=== PATIENT | female | born 1990 | race Caucasian/White ===

== ENCOUNTER 2017-04-27 20:08 | Emergency (ER) | payer MEDICARE, MEDICAID ==
[2017-04-27] MEDS ORDERED: predniSONE 20 MG TABLET PO STA (20:33)
[2017-04-27] MEDS ORDERED: ALBUTEROL NEB 2.5 MG/3 ML INH STA (20:34)
[2017-04-27] MEDS ORDERED: BENZONATATE 100 MG CAPSULE PO STA (20:35)
[2017-04-27 20:37] LABS: RAPID STREP SCREEN REAGENT QC YELLOW (YELLOW)
--- NOTE | 2017-04-27 20:38 | ED Physician Documentation ---
PD HPI URI - Stated complaint Stated Complaint: COUGH - Chief complaint Chief Complaint: Resp - History obtained from History obtained from: Patient, Family - History of Present Illness Timing - onset: How many days ago (3) Timing duration: Days (3) Timing details: Gradual onset Pain level max: 0 Pain level now: 0 Associated symptoms: Fever (subjective), Nasal congestion, Rhinorrhea, Sore throat, Productive cough (green), Dyspnea (wheezing, not using her inhaler). No : Hemoptysis, Chest pain Contributing factors: Sick contact Improves by: Rest, MDI/nebulizer (has not used inhaler) Worsened by: Activity Similar symptoms before: Diagnosis ("bronchitis") Recently seen: Not recently seen Review of Systems Ears: denies: Ear pain GI: denies: Abdominal Pain, Vomiting, Diarrhea Skin: denies: Rash Musculoskeletal: denies: Neck pain, Back pain Neurologic: denies: Focal weakness, Numbness, Headache PD PAST MEDICAL HISTORY - Past Medical History Past Medical History: Yes Respiratory: Asthma - Past Surgical History Past Surgical History: No - Present Medications Home Medications: Ambulatory Orders Medication Instructions Recorded Confirmed Albuterol 2.5 mg INH Q4H PRN 02/25/13 02/25/13 Albuterol [Ventolin Hfa] 2 puffs INH Q4H PRN #1 inhaler 02/25/13 Chrom Tayla/Brindal Wall [Fat 1 each PO PRN 07/29/13 07/29/13 Jl Plus Tablet] Permethrin 5% Cream [(None)] 60 gm TP ONCE #1 cream..g. 07/29/13 Albuterol Sulf [Ventolin Hfa 2 puffs INH Q4HR PRN #1 inhaler 04/27/17 Inhaler] Benzonatate [Tessalon Perle] 100 - 200 mg PO TID PRN #30 capsule 04/27/17 Cetirizine HCl/Pseudoephedrine 1 each PO BID PRN #30 tab.er.12h 04/27/17 [Zyrtec-D Tablet] - Allergies Allergies/Adverse Reactions: Allergies Allergy/AdvReac Type Severity Reaction Status Date / Time sulfamethoxazole Allergy Mild Rash Verified 04/27/17 20:18 [From Bactrim] tramadol Allergy Mild Rash Verified 04/27/17 20:18 trimethoprim [From Bactrim] Allergy Mild Rash Verified 04/27/17 20:18 - Social History Does the pt smoke?: No Smoking Status: Never smoker Does the pt drink ETOH?: No Does the pt have substance abuse?: No - Immunizations Immunizations are current?: Yes - POLST Patient has POLST: No PD ED PE NORMAL - Vitals Vital signs reviewed: Yes - General General: Alert and oriented X 3, No acute distress, Well developed/nourished - HEENT HEENT: PERRL, Ears normal, Moist mucous membranes, Pharynx benign, Other (clear rhinorrhea) - Neck Neck: Supple, no meningeal sign - Cardiac Cardiac: RRR, Strong equal pulses - Respiratory Respiratory: No respiratory distress, Clear bilaterally - Abdomen Abdomen: Soft, Non tender, Non distended - Back Back: No CVA TTP - Derm Derm: Warm and dry, No rash - Neuro Neuro: Alert and oriented X 3 - Psych Psych: Normal mood, Normal affect Results - Vitals Vitals: Vital Signs - 24 hr 04/27/17 04/27/17 04/27/17 20:13 20:56 21:24 Temperature 36.4 C L Heart Rate 100 92 102 H Respiratory 17 18 18 Rate Blood Pressure 150/97 H 146/86 H O2 Saturation 98 97 04/27/17 21:37 Temperature 36.7 C Heart Rate 80 Respiratory 18 Rate Blood Pressure 99/83 H O2 Saturation 100 Oxygen O2 Source Room air - Labs Labs: Laboratory Tests 04/27/17 20:15 Group A Strep Rapid Negative - Rads (name of study) cxr Radiology: Prelim report reviewed, EMP read contemporaneously, See rad report ( No acute abnormality) PD MEDICAL DECISION MAKING - ED course Complexity details: reviewed results, re-evaluated patient, considered differential, d/w patient, d/w family ED course: Patient is a 27-year-old female who presents to the emergency department with a viral URI. Will refill her inhaler for her. Place her on decongestants and Tessalon. No acute findings on x-ray. No pneumonia. Clinically very well- appearing, nontoxic. No hypoxia. No respiratory distress. Patient counseled regarding signs and symptoms for which I believe and urgent re-evaluation would be necessary. Patient with good understanding of and agreement to plan and is comfortable going home at this time This document was made in part using voice recognition software. While efforts are made to proofread this document, sound alike and grammatical errors may occur. Departure - Departure Disposition: 01 Home, Self Care Clinical Impression: Viral URI Condition: Good Instructions: ED URI Viral Follow-Up: Sierra Bernard ARNP [Primary Care Provider] - Within 1 week Prescriptions: Albuterol Sulf [Ventolin Hfa Inhaler] 2 puffs INH Q4HR PRN #1 inhaler PRN Reason: Wheezing Benzonatate [Tessalon Perle] 100 - 200 mg PO TID PRN #30 capsule PRN Reason: Cough Cetirizine HCl/Pseudoephedrine [Zyrtec-D Tablet] 1 each PO BID PRN #30 tab.er.12h PRN Reason: Nasal Congestion Comments: There is no pneumonia on your chest x-ray today. Take the medications as prescribed. In general this will last approximately 7-14 days. Return if you worsen. Discharge Date/Time: 04/27/17 21:41
[2017-04-27] MEDS ORDERED: predniSONE 20 MG TABLET ONE (20:42)
[2017-04-27] MEDS ORDERED: BENZONATATE 100 MG CAPSULE PO ONE (20:42)
[2017-04-27] MEDS ORDERED: ALBUTEROL NEB 2.5 MG/3 ML INH ONE (20:51)
--- NOTE | 2017-04-27 21:14 | XRAY Preliminary Report ---
Exam: XR Chest 2 View PA/LAT IMPRESSION: No acute pulmonary disease or interval change. [facility] SITE ID: [id number]
--- NOTE | 2017-04-27 21:16 | XRAY Report ---
EXAM: CHEST RADIOGRAPHY EXAM DATE: 04/27/2017 08:56 PM. CLINICAL HISTORY: Cough. Fever. Chest pain. COMPARISON: 02/25/2013. TECHNIQUE: 2 views. FINDINGS: Lungs/Pleura: Stable minor left base scarring, otherwise no focal opacities evident. No pleural effus ion. No pneumothorax. Normal volumes. Mediastinum: Heart and mediastinal contours are unremarkable. Other: No bony abnormality identified. IMPRESSION: No acute pulmonary disease or interval change. [facility] Referring Provider Line: [phone] SITE ID: [id number]
[2017-04-27 21:39] VITALS: BP 99/83
== END 2017-04-27 21:41 | disposition home or self-care (01) ==
LOC: ED 20:08
DX: J06.9 Acute upper respiratory infection, unspecified (principal); B34.9 Viral infection, unspecified
CPT/HCPCS: 71020; 87070; 87430; 94640; 99283; A9270; J7512; J7613

== ENCOUNTER 2017-11-12 02:12 | Emergency (ER) | payer MEDICARE, MEDICAID ==
[2017-11-12 02:20] VITALS: BP 132/92
[2017-11-12] MEDS ORDERED: IBUPROFEN 600 MG TABLET PO STA (02:34)
[2017-11-12] MEDS ORDERED: ONDANSETRON ODT 4 MG TABLET TL STA (02:35)
[2017-11-12] MEDS ORDERED: AMOXICILLIN 250 MG CAPSULE PO STA (02:35)
--- NOTE | 2017-11-12 02:44 | ED Physician Documentation ---
PD [facility] HEENT - Stated complaint Stated Complaint: DENTAL PAIN - Chief complaint Chief Complaint: Heent - History obtained from History obtained from: Patient - History of Present Illness Timing - onset: Today Timing - details: Gradual onset, Still present Location: Left ear, Throat Associated symptoms: No: Fever Similar symptoms before: Has not had sx before Recently seen: Not recently seen - Additional information Additional information: Patient is a 27 year old female presenting to the emergency department for ear pain, mouth pain, nausea and vomiting. Patient states that her symptoms started today. patient denies any fevers. patient reports that she has had a toothache and has been using orajel. Patient states that she had an episode where she vomited green stuff, then an episode when she vomited white stuff. Review of Systems Constitutional: denies: Fever, Chills Eyes: denies: Decreased vision, Photophobia Ears: reports: Ear pain Nose: denies: Rhinorrhea / runny nose, Congestion Throat: reports: Dental pain / toothache, Sore throat Cardiac: reports: Reviewed and negative Respiratory: reports: Reviewed and negative GI: reports: Nausea, Vomiting. denies: Abdominal Pain, Constipation, Diarrhea : denies: Dysuria, Frequency Skin: denies: Rash, Lesions Musculoskeletal: denies: Neck pain, Back pain, Extremity pain Neurologic: denies: Generalized weakness, Syncope Immunocompromised: denies: Immunocompromised PD PAST MEDICAL HISTORY - Past Medical History Respiratory: Asthma - Past Surgical History Past Surgical History: No - Present Medications Home Medications: Ambulatory Orders Medication Instructions Recorded Confirmed Albuterol 2.5 mg INH Q4H PRN 02/25/13 02/25/13 Albuterol [Ventolin Hfa] 2 puffs INH Q4H PRN #1 inhaler 02/25/13 Chrom Tayla/Brindal Wall [Fat 1 each PO PRN 07/29/13 07/29/13 Jl Plus Tablet] Permethrin 5% Cream 60 gm TP ONCE #1 cream..g. 07/29/13 Albuterol Sulf [Ventolin Hfa 2 puffs INH Q4HR PRN #1 inhaler 04/27/17 Inhaler] Benzonatate [Tessalon Perle] 100 - 200 mg PO TID PRN #30 capsule 04/27/17 Cetirizine HCl/Pseudoephedrine 1 each PO BID PRN #30 tab.er.12h 04/27/17 [Zyrtec-D Tablet] Amoxicillin 1,000 mg PO BID 10 Days capsule 11/12/17 Ondansetron Odt [Zofran] 4 mg TL Q6H PRN #14 tablet 11/12/17 - Allergies Allergies/Adverse Reactions: Allergies Allergy/AdvReac Type Severity Reaction Status Date / Time sulfamethoxazole Allergy Mild Rash Verified 11/12/17 02:20 [From Bactrim] tramadol Allergy Mild Rash Verified 11/12/17 02:20 trimethoprim [From Bactrim] Allergy Mild Rash Verified 11/12/17 02:20 - Social History Does the pt smoke?: No Smoking Status: Never smoker Does the pt drink ETOH?: No Does the pt have substance abuse?: No - Immunizations Immunizations are current?: Yes - POLST Patient has POLST: No PD ED PE NORMAL - Vitals Vital signs reviewed: Yes - HEENT HEENT: Atraumatic - Neck Neck: Supple, no meningeal sign - Cardiac Cardiac: RRR - Respiratory Respiratory: No respiratory distress - Abdomen Abdomen: Soft, Non tender, Non distended - Derm Derm: Normal color, Warm and dry - Extremities Extremities: No deformity - Neuro Neuro: Alert and oriented X 3, No motor deficit, Normal speech Eye Opening: Spontaneous PD ED PE EXPANDED - General General: Alert, Anxious - HEENT HEENT: R TM dull, R TM retracted, L TM dull, L TM retracted, Pharynx normal, Dental TTP. No: Pharyngeal erythema, Swollen tonsils, Oral lesions / sores Results - Vitals Vitals: Vital Signs - 24 hr 11/12/17 02:19 Temperature 36.1 C L Heart Rate 101 H Respiratory 16 Rate Blood Pressure 132/92 H O2 Saturation 100 Oxygen O2 Source Room air PD MEDICAL DECISION MAKING - ED course Complexity details: reviewed old records, reviewed results, re-evaluated patient , considered differential, d/w patient ED course: Patient was seen and examined at bedside. patient was anxious appearing but in no distress. Patient was treated with zofran, motrin and amoxicllin. patient required no further work up and was stable for discharge with outpatient follow up. Departure - Departure Disposition: 01 Home, Self Care Clinical Impression: Otitis media Condition: Good Instructions: ED Otitis Media Acute Adult Follow-Up: Sierra Bernard ARNP [Primary Care Provider] - Within 1 week Prescriptions: Amoxicillin 1,000 mg PO BID 10 Days capsule Ondansetron Odt [Zofran] 4 mg TL Q6H PRN #14 tablet PRN Reason: Nausea / Vomiting Comments: Your symptoms today are being caused by an ear infection. You have been started on antibiotics for it, which your will need to take twice a day. You can take zofran as needed for nausea and alternate between ibuprofen and tylenol every three hours as needed for pain. You should follow up with your doctor tomorrow if your symptoms persist. You may return to the emergency department at any time for new, worsening or uncontrollable symptoms.
== END 2017-11-12 02:58 | disposition home or self-care (01) ==
LOC: ED 02:12
DX: H66.93 Otitis media, unspecified, bilateral (principal)
CPT/HCPCS: 99283; A9270; Q0162

== ENCOUNTER 2018-08-09 18:40 | Emergency (ER) | payer MEDICARE, MEDICAID ==
[2018-08-09] MEDS ORDERED: LORazepam 0.5 MG TABLET PO STA (18:56)
--- NOTE | 2018-08-09 18:57 | ED Physician Documentation ---
PD HPI ABD PAIN - Stated complaint Stated Complaint: ETOH WITHDRAWL - Chief complaint Chief Complaint: Abd Pain - History obtained from History obtained from: Patient, Family (mom) - History of Present Illness Timing - onset: Last night (She felt like she had a UTI with urinary frequency and urgency. She had some lower abdominal pressure. Then she went out partying last night and had a bunch of Jell-O shots and smokes marijuana. This morning her mom found her passed out and she aroused her and found her to have what sounds like a panic attack with anxiety and feeling like she was going to . That has all past but she still little anxious and feels like she has a UTI. She is not a frequent drinker.) Review of Systems Ten Systems: 10 systems reviewed and negative Constitutional: reports: Chills, Fatigue. denies: Fever Cardiac: denies: Chest pain / pressure, Palpitations Respiratory: denies: Dyspnea, Cough GI: denies: Nausea, Vomiting, Diarrhea PD PAST MEDICAL HISTORY - Past Medical History Respiratory: Asthma - Past Surgical History Past Surgical History: No - Present Medications Home Medications: Ambulatory Orders Medication Instructions Recorded Confirmed Albuterol 2.5 mg INH Q4H PRN 02/25/13 02/25/13 Albuterol [Ventolin Hfa] 2 puffs INH Q4H PRN #1 inhaler 02/25/13 Chrom Tayla/Brindal Wall [Fat 1 each PO PRN 07/29/13 07/29/13 Jl Plus Tablet] Permethrin 5% Cream 60 gm TP ONCE #1 cream..g. 07/29/13 Albuterol Sulf [Ventolin Hfa 2 puffs INH Q4HR PRN #1 inhaler 04/27/17 Inhaler] Benzonatate [Tessalon Perle] 100 - 200 mg PO TID PRN #30 capsule 04/27/17 Cetirizine HCl/Pseudoephedrine 1 each PO BID PRN #30 tab.er.12h 04/27/17 [Zyrtec-D Tablet] Amoxicillin 1,000 mg PO BID 10 Days capsule 11/12/17 Ondansetron Odt [Zofran] 4 mg TL Q6H PRN #14 tablet 11/12/17 Hydrocortisone 1% Oint 1 appful TP TID #2 oint...g. 08/09/18 [Hydrocortisone] Nitrofurantoin Monohyd/M-Cryst 100 mg PO BID #10 capsule 08/09/18 [Macrobid 100 mg Capsule] - Allergies Allergies/Adverse Reactions: Allergies Allergy/AdvReac Type Severity Reaction Status Date / Time sulfamethoxazole Allergy Mild Rash Verified 08/09/18 18:55 [From Bactrim] tramadol Allergy Mild Rash Verified 08/09/18 18:55 trimethoprim [From Bactrim] Allergy Mild Rash Verified 08/09/18 18:55 - Social History Does the pt smoke?: No Smoking Status: Never smoker Does the pt drink ETOH?: No Does the pt have substance abuse?: No - Immunizations Immunizations are current?: Yes - POLST Patient has POLST: No PD ED PE NORMAL - Vitals Vital signs reviewed: Yes - General General: Alert and oriented X 3, No acute distress - HEENT HEENT: PERRL, EOMI - Neck Neck: Supple, no meningeal sign, No bony TTP - Cardiac Cardiac: RRR, No murmur - Respiratory Respiratory: No respiratory distress, Clear bilaterally - Abdomen Abdomen: Non tender - Neuro Neuro: Alert and oriented X 3, Normal speech - Psych Psych: Normal mood, Normal affect Results - Vitals Vitals: Vital Signs - 24 hr 08/09/18 18:52 Temperature 36.0 C L Heart Rate 102 H Respiratory 16 Rate Blood Pressure 163/95 H O2 Saturation 99 Oxygen O2 Source Room air - Labs Labs: Laboratory Tests 08/09/18 19:30 Urine Color YELLOW Urine Clarity CLEAR Urine pH 6.0 Ur Specific [place] 1.010 Urine Protein NEGATIVE Urine Glucose (UA) NEGATIVE Urine Ketones NEGATIVE Urine Occult Blood NEGATIVE Urine Nitrite NEGATIVE Urine Bilirubin NEGATIVE Urine Urobilinogen 0.2 (NORMAL) Ur Leukocyte Esterase TRACE H Ur Microscopic Review INDICATED Urine Culture Comments Not Reportable Urine HCG, Qual NEGATIVE PD MEDICAL DECISION MAKING - ED course ED course: 28-year-old woman with what sounds like a panic attack this morning while being hung over and complex with a UTI. She was given half milligram of Ativan here with relief of her anxiety and Macrobid for the UTI. She also has a very mild nonspecific rash mostly in the back looks more like bug bites than anything else for which she is treated with a cortisone ointment. Departure - Departure Disposition: 01 Home, Self Care Clinical Impression: Rash and nonspecific skin eruption, Anxiety with limited-symptom attacks Urinary tract infection Qualifiers: Urinary tract infection type: acute cystitis Hematuria presence: without hematuria Qualified Code(s): N30.00 - Acute cystitis without hematuria Hangover Qualifiers: Complication of substance-induced condition: uncomplicated Qualified Code(s): F10.120 - Alcohol abuse with intoxication, uncomplicated Condition: Good Record reviewed to determine appropriate education?: Yes Instructions: ED Stress React, ED UTI Cystitis Female Prescriptions: Hydrocortisone 1% Oint [Hydrocortisone] 1 appful TP TID #2 oint...g. Nitrofurantoin Monohyd/M-Cryst [Macrobid 100 mg Capsule] 100 mg PO BID #10 capsule Comments: Call your doctor to arrange a follow-up appointment, make the next available appointment. In the interim, return anytime if worse or if new symptoms d evelop. Your blood pressure was elevated today on check into the emergency department. This does not mean that you have hypertension, it is a common phenomenon to come to the emergency department and have elevated blood pressure. I recommend that you see your primary care physician within the week to have it rechecked when you are feeling better.
[2018-08-09 19:40] LABS: BILIRUBIN,URINE NEGATIVE (NEGATIVE); GLUCOSE, URINE (UA) NEGATIVE (NEGATIVE); KETONES,URINE (UA) NEGATIVE (NEGATIVE); LEUKOCYTE ESTERASE, URINE TRACE (NEGATIVE); NITRITE,URINE NEGATIVE (NEGATIVE); OCCULT BLOOD,URINE NEGATIVE (NEGATIVE); PROTEIN,URINE NEGATIVE (NEGATIVE); UROBILINOGEN,URINE 0.2 (NORMAL) E.U./dL (NORMAL)
[2018-08-09 19:41] LABS: CLARITY,URINE CLEAR (CLEAR); HCG UR QUAL NEGATIVE
[2018-08-09] MEDS ORDERED: NITROFURANTOIN MACRO 100 MG CAPSULE PO STA (19:50)
[2018-08-09 19:58] LABS: AMORPHOUS SEDIMENT,UR Rare /LPF; BACTERIA,URINE Many /HPF (None Seen); RBC,URINE None Seen /HPF (0-5); SQUAMOUS EPITHELIAL CELL,UR FEW Squamous (<= Few)
[2018-08-09 20:03] VITALS: BP 120/79
== END 2018-08-09 20:04 | disposition home or self-care (01) ==
LOC: ED 18:40
DX: F41.9 Anxiety disorder, unspecified (principal); R21 Rash and other nonspecific skin eruption; N30.00 Acute cystitis without hematuria
CPT/HCPCS: 81001; 81025; 87086; 99283; A9270; 81003

== ENCOUNTER 2018-08-21 09:00 | Outpatient (CLI) | payer MEDICARE, MEDICAID ==
[2018-08-22 10:12] LABS: BILIRUBIN,URINE NEGATIVE (NEGATIVE); GLUCOSE, URINE (UA) NEGATIVE (NEGATIVE); KETONES,URINE (UA) 15 mg/dL (NEGATIVE); LEUKOCYTE ESTERASE, URINE NEGATIVE (NEGATIVE); NITRITE,URINE NEGATIVE (NEGATIVE); OCCULT BLOOD,URINE NEGATIVE (NEGATIVE); PROTEIN,URINE NEGATIVE (NEGATIVE); UROBILINOGEN,URINE 0.2 (NORMAL) E.U./dL (NORMAL)
[2018-08-22 10:17] LABS: CLARITY,URINE CLOUDY (CLEAR)
[2018-08-22 10:30] LABS: BACTERIA,URINE Moderate /HPF (None Seen); RBC,URINE 0-5 /HPF (0-5); SQUAMOUS EPITHELIAL CELL,UR RARE Squamous (<= Few)
== END 2018-08-21 23:59 ==
LOC: LAB.R 09:00
PROVIDERS: ATTEND Nurse Practitioner Family
DX: N39.0 Urinary tract infection, site not specified (principal)
CPT/HCPCS: 81001; 81003; 87086

== ENCOUNTER 2018-09-22 16:01 | Emergency (ER) | payer MEDICARE, MEDICAID ==
[2018-09-22 16:37] LABS: BILIRUBIN,URINE NEGATIVE (NEGATIVE); GLUCOSE, URINE (UA) NEGATIVE (NEGATIVE); KETONES,URINE (UA) NEGATIVE (NEGATIVE); LEUKOCYTE ESTERASE, URINE NEGATIVE (NEGATIVE); NITRITE,URINE NEGATIVE (NEGATIVE); OCCULT BLOOD,URINE NEGATIVE (NEGATIVE); PROTEIN,URINE NEGATIVE (NEGATIVE); UROBILINOGEN,URINE 0.2 (NORMAL) E.U./dL (NORMAL)
[2018-09-22 16:39] LABS: CLARITY,URINE CLEAR (CLEAR)
[2018-09-22 16:40] LABS: HCG UR QUAL NEGATIVE
--- NOTE | 2018-09-22 17:11 | ED Physician Documentation ---
PD HPI URI - Stated complaint Stated Complaint: CHEST PX/FEMALE - Chief complaint Chief Complaint: Fever - History obtained from History obtained from: Patient - History of Present Illness Timing - onset: How many days ago (few) Timing duration: Days (few days of sinus symptoms, but has had congestion and cough and fever for over a week. Dx with Flu-A last week, and was improving some, then sinus pressure and drainage the past few days.) Timing details: Gradual onset, Still present Associated symptoms: Fever, Nasal congestion, Sinus pain, Dry cough. No: Sore throat Contributing factors: No: Sick contact Recently seen: Clinic (Dx with Flu last week) Review of Systems Constitutional: reports: Fever Nose: reports: Rhinorrhea / runny nose, Congestion, Sinus pressure / pain Throat: denies: Sore throat Respiratory: reports: Cough GI: denies: Abdominal Pain, Nausea, Vomiting, Diarrhea Skin: denies: Rash Neurologic: reports: Headache (frontal). denies: Altered mental status PD PAST MEDICAL HISTORY - Past Medical History Past Medical History: Yes Respiratory: Asthma - Past Surgical History Past Surgical History: No - Present Medications Home Medications: Ambulatory Orders Medication Instructions Recorded Confirmed Albuterol 2.5 mg INH Q4H PRN 02/25/13 02/25/13 Albuterol [Ventolin Hfa] 2 puffs INH Q4H PRN #1 inhaler 02/25/13 Chrom Tayla/Brindal Wall [Fat 1 each PO PRN 07/29/13 07/29/13 Jl Plus Tablet] Permethrin 5% Cream 60 gm TP ONCE #1 cream..g. 07/29/13 Albuterol Sulf [Ventolin Hfa 2 puffs INH Q4HR PRN #1 inhaler 04/27/17 Inhaler] Benzonatate [Tessalon Perle] 100 - 200 mg PO TID PRN #30 capsule 04/27/17 Cetirizine HCl/Pseudoephedrine 1 each PO BID PRN #30 tab.er.12h 04/27/17 [Zyrtec-D Tablet] Amoxicillin 1,000 mg PO BID 10 Days capsule 11/12/17 Ondansetron Odt [Zofran] 4 mg TL Q6H PRN #14 tablet 11/12/17 Hydrocortisone 1% Oint 1 appful TP TID #2 oint...g. 08/09/18 [Hydrocortisone] Nitrofurantoin Monohyd/M-Cryst 100 mg PO BID #10 capsule 08/09/18 [Macrobid 100 mg Capsule] Amoxicillin 500 mg PO TID #21 capsule 09/22/18 Dexamethasone [Decadron] 4 mg PO DAILY #5 tablet 09/22/18 Ondansetron Odt [Zofran] 4 mg TL Q6H PRN #10 tablet 09/22/18 - Allergies Allergies/Adverse Reactions: Allergies Allergy/AdvReac Type Severity Reaction Status Date / Time sulfamethoxazole Allergy Mild Rash Verified 09/22/18 16:08 [From Bactrim] tramadol Allergy Mild Rash Verified 09/22/18 16:08 trimethoprim [From Bactrim] Allergy Mild Rash Verified 09/22/18 16:08 - Social History Does the pt smoke?: No Smoking Status: Never smoker Does the pt drink ETOH?: No Does the pt have substance abuse?: No - Immunizations Immunizations are current?: Yes - POLST Patient has POLST: No PD ED PE NORMAL - Vitals Vital signs reviewed: Yes - General General: Alert and oriented X 3, No acute distress, Well developed/nourished - HEENT HEENT: Ears normal, Pharynx benign, Other (sinus tenderness to percussion frontal and maxillary) - Neck Neck: Supple, no meningeal sign - Cardiac Cardiac: RRR (mildly tachycardic), No murmur - Respiratory Respiratory: Clear bilaterally - Abdomen Abdomen: Soft, Non tender - Back Back: No CVA TTP - Derm Derm: Normal color, Warm and dry Results - Vitals Vitals: Oxygen O2 Source Room air - Labs Labs: Laboratory Tests 09/22/18 09/22/18 09/22/18 16:20 18:05 18:05 WBC 6.6 RBC 4.90 Hgb 14.3 Hct 42.6 MCV 87.0 MCH 29.2 MCHC 33.6 RDW 12.8 Plt Count 301 MPV 7.7 L Neut # (Auto) 4.0 Lymph # (Auto) 1.6 [place] # (Auto) 0.7 Eos # (Auto) 0.3 Baso # (Auto) 0.1 Absolute Nucleated RBC 0.00 Nucleated RBC % 0.0 Sodium 138 Potassium 3.7 Chloride 103 Carbon Dioxide 27 Anion Gap 8.0 BUN 6 Creatinine 0.5 Estimated GFR (MDRD) 147 Glucose 101 H Calcium 9.3 Total Bilirubin 0.5 AST 18 ALT 20 Alkaline Phosphatase 54 Total Protein 8.0 Albumin 4.3 Globulin 3.7 Albumin/Globulin Ratio 1.2 Lipase 27 Urine Color YELLOW Urine Clarity CLEAR Urine pH 6.0 Ur Specific [place] 1.010 Urine Protein NEGATIVE Urine Glucose (UA) NEGATIVE Urine Ketones NEGATIVE Urine Occult Blood NEGATIVE Urine Nitrite NEGATIVE Urine Bilirubin NEGATIVE Urine Urobilinogen 0.2 (NORMAL) Ur Leukocyte Esterase NEGATIVE Ur Microscopic Review NOT INDICATED Urine Culture Comments NOT INDICATED Urine HCG, Qual NEGATIVE PD MEDICAL DECISION MAKING - ED course Complexity details: considered differential (symptoms are mainly sinus but with purulent discharge, teeth pain and sinus pressure. Unsure if just viral or might have bacterial. ), d/w patient Departure - Departure Disposition: 01 Home, Self Care Clinical Impression: Upper respiratory infection Qualifiers: URI type: unspecified URI Qualified Code(s): J06.9 - Acute upper respiratory infection, unspecified Acute sinus infection Qualifiers: Sinusitis location: unspecified location Recurrence: non-recurrent Qualified Code(s): J01.90 - Acute sinusitis, unspecified Condition: Stable Record reviewed to determine appropriate education?: Yes Instructions: ED Sinusitis Abx Tx Prescriptions: Amoxicillin 500 mg PO TID #21 capsule Dexamethasone [Decadron] 4 mg PO DAILY #5 tablet Ondansetron Odt [Zofran] 4 mg TL Q6H PRN #10 tablet PRN Reason: Nausea / Vomiting Comments: Stay well hydrated. Your blood tests are good and chest xray is clear. This may be viral illness, but some sounds possibly bacterial, so will treat with antibiotic, as well as medication for inflammation, and nausea. Recheck if not improving over the next few days. Discharge Date/Time: 09/22/18 19:11
[2018-09-22] MEDS ORDERED: ONDANSETRON ODT 4 MG TABLET TL STA (17:37)
[2018-09-22] MEDS ORDERED: DEXAMETHASONE 10 MG/ML VIAL PO STA (17:37)
[2018-09-22] MEDS ORDERED: diphenhydrAMINE 25 MG CAPSULE PO STA (17:37)
--- NOTE | 2018-09-22 18:18 | XRAY Report ---
Reason: congest and flu for 2 weeks Procedure Date: 09/22/2018 Accession Number: [id number] / [id number] Procedure: XR - Chest 2 View X-Ray CPT Code: 24537 FULL RESULT: EXAM: CHEST RADIOGRAPHY EXAM DATE: 09/22/2018 05:55 PM. CLINICAL HISTORY: Congest and flu for 2 weeks. Positive flu for 1 week. Increased productive cough. Shortness of air for 2 days. COMPARISON: CHEST 2 VIEW PA/LAT 04/27/2017 8:37 PM. TECHNIQUE: 2 views. FINDINGS: Lungs/Pleura: No focal opacities evident. No pleural effusion. No pneumothorax. Normal volumes. Mediastinum: Heart and mediastinal contours are unremarkable. IMPRESSION: No acute cardiopulmonary disease seen. [facility]
[2018-09-22 18:21] LABS: BASOPHILS # (AUTO) 0.1 10^3/uL (0.0-0.1); BASOPHILS % (AUTO) 0.9 %; EOSINOPHILS # (AUTO) 0.3 10^3/uL (0.0-0.7); EOSINOPHILS % (AUTO) 4.2 %; HGB - HEMOGLOBIN 14.3 g/dL (12.0-16.0); LYMPHOCYTES # (AUTO) 1.6 10^3/uL (1.5-3.5); LYMPHOCYTES % (AUTO) 23.7 %; MEAN CORPUSCULAR HEMOGLOBIN 29.2 pg (27.0-31.0); MEAN CORPUSCULAR HGB CONC 33.6 g/dL (32.0-36.0); MEAN PLATELET VOLUME 7.7 fL (7.9-10.8); MONOCYTES # (AUTO) 0.7 10^3/uL (0.0-1.0); NEUTROPHILS % (AUTO) 60.2 %; PLT - PLATELET COUNT 301 10^3/uL (130-450); RED CELL DISTRIBUTION WIDTH 12.8 % (12.0-15.0); WHITE BLOOD COUNT 6.6 x10^3/uL (4.8-10.8)
[2018-09-22 18:35] LABS: ALBUMIN 4.3 g/dL (3.2-5.5); ALBUMIN/GLOBULIN RATIO 1.2 (1.0-2.2); BILIRUBIN,TOTAL 0.5 mg/dL (0.2-1.0); CALCIUM 9.3 mg/dL (8.5-10.3); CREATININE 0.5 mg/dL (0.4-1.0)
[2018-09-22] MEDS ORDERED: AMOXICILLIN 250 MG CAPSULE PO STA (19:00)
[2018-09-22 19:12] VITALS: BP 126/72
== END 2018-09-22 19:11 | disposition home or self-care (01) ==
LOC: ED 16:01
DX: J01.90 Acute sinusitis, unspecified (principal); J06.9 Acute upper respiratory infection, unspecified; J45.909 Unspecified asthma, uncomplicated
CPT/HCPCS: 36415; 71046; 80053; 81003; 81025; 83690; 85025; 99283; A9270; Q0162; 81001; 87086

== ENCOUNTER 2018-09-27 00:26 | Emergency (ER) | payer MEDICARE, MEDICAID ==
--- NOTE | 2018-09-27 00:44 | ED Physician Documentation ---
PD HPI SKIN - Stated complaint Stated Complaint: RASH - Chief complaint Chief Complaint: Wound - History obtained from History obtained from: Patient - History of Present Illness Timing - onset: How many days ago (2-3) Timing - details: Abrupt onset, Intermittant Location: Face Quality / character: Itchy Associated symptoms: No: Fever Contributing factors: Exposed to medication Similar symptoms before: Other (does not recall similar symptoms, although I see a previous [facility] ED visit for rash that has similar description) Recently seen: Emergency Dept - Additional information Additional information: T+R from this ED 09/22 for sinusitis, rx decadron, amoxicillin, and zofran. presents due to episodic pruritic rash, predominantly on face. also has had difficulty sleeping and was told by PMDs office to stop the decadron. she has appointment with pmd tomorrow. Review of Systems Constitutional: reports: Reviewed and negative Ears: reports: Ear pain Nose: reports: Congestion, Sinus pressure / pain Throat: denies: Sore throat Respiratory: reports: Reviewed and negative GI: reports: Reviewed and negative Skin: reports: Rash PD PAST MEDICAL HISTORY - Past Medical History Respiratory: Asthma - Past Surgical History Past Surgical History: No - Present Medications Home Medications: Ambulatory Orders Medication Instructions Recorded Confirmed Albuterol 2.5 mg INH Q4H PRN 02/25/13 09/27/18 Albuterol [Ventolin Hfa] 2 puffs INH Q4H PRN #1 inhaler 02/25/13 09/27/18 Permethrin 5% Cream 60 gm TP ONCE #1 cream..g. 07/29/13 09/27/18 Albuterol Sulf [Ventolin Hfa 2 puffs INH Q4HR PRN #1 inhaler 04/27/17 09/27/18 Inhaler] Hydrocortisone 1% Oint 1 appful TP TID #2 oint...g. 08/09/18 09/27/18 [Hydrocortisone] Ondansetron Odt [Zofran] 4 mg TL Q6H PRN #10 tablet 09/22/18 09/27/18 Azithromycin [Zithromax] 250 mg PO DAILY #4 tablet 09/27/18 - Allergies Allergies/Adverse Reactions: Allergies Allergy/AdvReac Type Severity Reaction Status Date / Time amoxicillin Allergy Mild Rash Verified 09/27/18 00:39 sulfamethoxazole Allergy Mild Rash Verified 09/27/18 00:39 [From Bactrim] tramadol Allergy Mild Rash Verified 09/27/18 00:39 trimethoprim [From Bactrim] Allergy Mild Rash Verified 09/27/18 00:39 - Social History Does the pt smoke?: No Smoking Status: Never smoker Does the pt drink ETOH?: No Does the pt have substance abuse?: No - Immunizations Immunizations are current?: Yes - POLST Patient has POLST: No PD ED PE NORMAL - Vitals Vital signs reviewed: Yes - General General: Alert and oriented X 3, No acute distress, Well developed/nourished - HEENT HEENT: Ears normal, Moist mucous membranes, Pharynx benign, Other (mild tenderness to percussion of maxillary sinuses (L>R)) - Neck Neck: Supple, no meningeal sign - Respiratory Respiratory: No respiratory distress, Clear bilaterally - Derm Derm: Other (faint, poorly-marginated erythema on face, predominantly over maxillary sinuses.) Results - Vitals Vitals: Oxygen O2 Source Room air PD MEDICAL DECISION MAKING - ED course Complexity details: reviewed old records, considered differential, d/w patient ED course: rash is faint, does not look strongly s/o allergic reaction, although the rash correlates with dosing of amoxicillin. will stop amoxicillin (as well as decadron, as this is likely causing her anxiety and insomnia). she still describes significant sinus congestion and the combination of percussive tenderness and erythema located mostly over her sinuses is concerning for ongoing sinusitis and thus will rx zithromax. given benadryl for symptoms. other steroids such as prednisone would likely cause similar side effect as decadron and thus will hold off on rx steroid Departure - Departure Disposition: 01 Home, Self Care Clinical Impression: Sinusitis Instructions: ED Dermatitis Non Specific Rash, ED Sinusitis Abx Tx Prescriptions: Azithromycin [Zithromax] 250 mg PO DAILY #4 tablet Comments: Follow up with your doctor later this morning as scheduled. Stop taking the amoxicillin and the dexamethasone. If the benadryl helps, you can continue using it as directed (follow the label instructions; this is an over-the counter medication. The usual dose is 1-2 tablets by mouth every 6 hours as needed for symptoms). Discharge Date/Time: 09/27/18 01:25
[2018-09-27] MEDS ORDERED: AZITHROMYCIN 250 MG TABLET PO STA (01:02)
[2018-09-27] MEDS ORDERED: diphenhydrAMINE 25 MG CAPSULE PO STA (01:02)
[2018-09-27 01:20] VITALS: BP 127/89
== END 2018-09-27 01:25 | disposition home or self-care (01) ==
LOC: ED 00:26
DX: J32.9 Chronic sinusitis, unspecified (principal); R21 Rash and other nonspecific skin eruption
CPT/HCPCS: 99283; A9270

== ENCOUNTER 2018-11-17 21:05 | Emergency (ER) | payer MEDICARE, MEDICAID ==
[2018-11-17 21:12] VITALS: BP 125/80
[2018-11-17] MEDS ORDERED: guaiFENesin/CODEINE 5 ML UDC PO STA (22:29)
[2018-11-17] MEDS ORDERED: predniSONE 20 MG TABLET PO STA (22:29)
[2018-11-17] MEDS ORDERED: DOXYCYCLINE 100 MG TABLET PO STA (22:29)
--- NOTE | 2018-11-17 22:32 | ED Physician Documentation ---
PD HPI URI - Stated complaint Stated Complaint: CONGESTION - Chief complaint Chief Complaint: Resp - History obtained from History obtained from: Patient - History of Present Illness Timing - onset: Other (28-year-old woman who smokes tobacco, is obese and has asthma. She is been sick for 4 days with a cough productive of green sputum, shortness of breath but no fevers. She also has nasal drainage and ear pain. She has had some loose stools.) Review of Systems Constitutional: denies: Fever, Chills, Myalgias Ears: reports: Ear pain. denies: Drainage/discharge Nose: reports: Rhinorrhea / runny nose, Congestion Throat: denies: Sore throat Respiratory: reports: Dyspnea, Cough GI: denies: Abdominal Pain PD PAST MEDICAL HISTORY - Past Medical History Past Medical History: Yes Respiratory: Asthma - Past Surgical History Past Surgical History: No - Present Medications Home Medications: Ambulatory Orders Medication Instructions Recorded Confirmed Albuterol 2.5 mg INH Q4H PRN 02/25/13 09/27/18 Albuterol [Ventolin Hfa] 2 puffs INH Q4H PRN #1 inhaler 02/25/13 09/27/18 Permethrin 5% Cream 60 gm TP ONCE #1 cream..g. 07/29/13 09/27/18 Albuterol Sulf [Ventolin Hfa 2 puffs INH Q4HR PRN #1 inhaler 04/27/17 09/27/18 Inhaler] Hydrocortisone 1% Oint 1 appful TP TID #2 oint...g. 08/09/18 09/27/18 [Hydrocortisone] Ondansetron Odt [Zofran] 4 mg TL Q6H PRN #10 tablet 09/22/18 09/27/18 Azithromycin [Zithromax] 250 mg PO DAILY #4 tablet 09/27/18 Albuterol Sulf [Ventolin Hfa 1 - 2 puffs INH Q4HR PRN #1 inhaler 11/17/18 Inhaler] Doxycycline Hyclate 100 mg PO BID #14 capsule 11/17/18 Hydrocodone/Chlorphen P-Stirex 5 ml PO BID PRN #90 ml 11/17/18 [Hydrocodone-Chlorphen ER Susp] predniSONE [Deltasone] 60 mg PO DAILY 5 Days tablet 11/17/18 - Allergies Allergies/Adverse Reactions: Allergies Allergy/AdvReac Type Severity Reaction Status Date / Time amoxicillin Allergy Mild Rash Verified 11/17/18 21:12 sulfamethoxazole Allergy Mild Rash Verified 11/17/18 21:12 [From Bactrim] tramadol Allergy Mild Rash Verified 11/17/18 21:12 trimethoprim [From Bactrim] Allergy Mild Rash Verified 11/17/18 21:12 - Social History Does the pt smoke?: No Smoking Status: Never smoker Does the pt drink ETOH?: No Does the pt have substance abuse?: No - Immunizations Immunizations are current?: Yes - POLST Patient has POLST: No PD ED PE NORMAL - Vitals Vital signs reviewed: Yes - General General: Alert and oriented X 3, No acute distress - HEENT HEENT: PERRL, EOMI, Ears normal, Moist mucous membranes, Pharynx benign - Neck Neck: Supple, no meningeal sign, No bony TTP - Cardiac Cardiac: RRR, No murmur - Respiratory Respiratory: No respiratory distress, Other (Nonclearing bibasilar rhonchi and slightly diminished Throughout without wheezing) - Abdomen Abdomen: Non tender - Derm Derm: Warm and dry - Extremities Extremities: No edema, No calf tenderness / cord - Neuro Neuro: Alert and oriented X 3, Normal speech Results - Vitals Vitals: Vital Signs - 24 hr 11/17/18 21:10 Temperature 36.1 C L Heart Rate 92 Respiratory 18 Rate Blood Pressure 125/80 O2 Saturation 100 Oxygen O2 Source Room air Departure - Departure Disposition: 01 Home, Self Care Clinical Impression: Bronchitis Asthma Qualifiers: Asthma severity: moderate Asthma persistence: persistent Asthma complication type: with acute exacerbation Qualified Code(s): J45.41 - Moderate persistent asthma with (acute) exacerbation Condition: Good Record reviewed to determine appropriate education?: Yes Instructions: ED Bronchitis Asthmatic, ED Smoking Cessation Prescriptions: Albuterol Sulf [Ventolin Hfa Inhaler] 1 - 2 puffs INH Q4HR PRN #1 inhaler PRN Reason: Shortness Of Air/Wheezing Doxycycline Hyclate 100 mg PO BID #14 capsule Hydrocodone/Chlorphen P-Stirex [Hydrocodone-Chlorphen ER Susp] 5 ml PO BID PRN #90 ml PRN Reason: Cough predniSONE [Deltasone] 60 mg PO DAILY 5 Days tablet Comments: Call your doctor to arrange a follow-up appointment, make the next available appointment. In the interim, return anytime if worse or if new symptoms deve lop.
== END 2018-11-17 22:45 | disposition home or self-care (01) ==
LOC: ED 21:05
DX: J45.41 Moderate persistent asthma with (acute) exacerbation (principal); F17.200 Nicotine dependence, unspecified, uncomplicated; E66.9 Obesity, unspecified
CPT/HCPCS: 99283; A9270; J7512

== ENCOUNTER 2019-07-17 23:11 | Emergency (ER) | payer MEDICAID, MEDICARE ==
--- NOTE | 2019-07-18 01:32 | ED Physician Documentation ---
History of Present Illness - Stated complaint Stated Complaint: COUGH/EAR PX - Chief complaint Chief Complaint: Fever - Additonal information Additional information: This is a 29 year old female who presents with cough, L>R ear discomfort, mild sore throat, and malaise. Her son is ill with a cough/cold, and she thinks she has got this. Her breathing does feel a bit tight and she has nasal congestion. No measured fever, no chest pain. 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 07/29/13 09/27/18 Albuterol Sulf [Ventolin Hfa 2 puffs INH Q4HR PRN #1 inhaler 04/27/17 09/27/18 Inhaler] Hydrocortisone 1% Oint 1 appful TP TID #2 oint...g. 08/09/18 09/27/18 [Hydrocortisone] Ondansetron Odt [Zofran] 4 mg TL Q6H PRN #10 tablet 09/22/18 09/27/18 Azithromycin [Zithromax] 250 mg PO DAILY #4 tablet 09/27/18 Albuterol Sulf [Ventolin Hfa 1 - 2 puffs INH Q4HR PRN #1 inhaler 11/17/18 Inhaler] Doxycycline Hyclate 100 mg PO BID #14 capsule 11/17/18 Hydrocodone/Chlorphen P-Stirex 5 ml PO BID PRN #90 ml 11/17/18 [Hydrocodone-Chlorphen ER Susp] predniSONE [Deltasone] 60 mg PO DAILY 5 Days tablet 11/17/18 Benzonatate [Tessalon Perle] 100 - 200 mg PO TID PRN #30 capsule 07/18/19 Fluticasone [Flonase] 1 sprays OMARI BID PRN #1 bottle 07/18/19 - Allergies Allergies/Adverse Reactions: Allergies Allergy/AdvReac Type Severity Reaction Status Date / Time amoxicillin Allergy Mild Rash Verified 11/17/18 21:12 sulfamethoxazole Allergy Mild Rash Verified 11/17/18 21:12 [From Bactrim] tramadol Allergy Mild Rash Verified 11/17/18 21:12 trimethoprim [From Bactrim] Allergy Mild Rash Verified 11/17/18 21:12 - Social History Does the pt smoke?: No Smoking Status: Never smoker Does the pt drink ETOH?: No Does the pt have substance abuse?: Yes Substance Use and Type: Marijuana - Immunizations Immunizations are current?: Yes - POLST Patient has POLST: No PD ED PE NORMAL - Vitals Vital signs reviewed: Yes - General General: Alert and oriented X 3, No acute distress - HEENT HEENT: Atraumatic, PERRL, Other (L serous effusion, R TM flat and clear) - Neck Neck: Supple, no meningeal sign - Cardiac Cardiac: RRR, No murmur - Respiratory Respiratory: No respiratory distress, Clear bilaterally - Abdomen Abdomen: Soft, Non distended - Derm Derm: Warm and dry - Extremities Extremities: No: No deformity, No tenderness to palpate, No edema - Neuro Neuro: Alert and oriented X 3 - Psych Psych: Normal mood, Normal affect Results - Vitals Vitals: Vital Signs - 24 hr 07/17/19 07/18/19 23:21 02:05 Temperature 36.7 C 36.3 C L Heart Rate 85 100 Respiratory 20 16 Rate Blood Pressure 146/94 H 142/85 H O2 Saturation 99 98 Oxygen O2 Source Room air - Rads (name of study) CXR Radiology: Other (No acute cardiopulmonary abnormality) PD MEDICAL DECISION MAKING - ED course ED course: Pt presents with URI symptoms. She has a serous effusion but no purulence that would require antibiotics. I doubt pneumonia given her clear lungs and vitals, pt was adamant about having one so it was obtained and is negative. She has no chest pain, is low risk for any cardiac pathology and her symptoms are clearly infectious. I discussed supportive care and prescribed flonase as well as tessalon perles and patient was discharged home. Departure - Departure Disposition: 01 Home, Self Care Clinical Impression: URI (upper respiratory infection) Qualifiers: URI type: unspecified viral URI Qualified Code(s): J06.9 - Acute upper respiratory infection, unspecified Condition: Good Instructions: ED Upper Resp Infec No Abx Tx Prescriptions: Benzonatate [Tessalon Perle] 100 - 200 mg PO TID PRN #30 capsule PRN Reason: Cough Fluticasone [Flonase] 1 sprays OMARI BID PRN #1 bottle PRN Reason: Nasal Congestion Comments: You appear to have a viral upper respiratory infection. We do not see any signs of pneumonia on your chest x-ray today. You also have some fluid behind her ear but no obvious infection in the ear. Your may try the Flonase, you may also take 25 mg of Benadryl every 8 hours for decongestion, and 650 mg of Tylenol and 600 mg of ibuprofen every 6 hours for fever or discomfort. If you are having worsening symptoms return to the emergency department, otherwise please follow- up with your primary care provider. Discharge Date/Time: 07/18/19 02:12
--- NOTE | 2019-07-18 01:53 | XRAY Report ---
Reason: Shortness of breath Procedure Date: 07/18/2019 Accession Number: [id number] / [id number] Procedure: XR - Chest 1 View X-Ray CPT Code: 44536 Final Report FULL RESULT: EXAM: CHEST RADIOGRAPHY EXAM DATE: 07/18/2019 01:24 AM. CLINICAL HISTORY: Shortness of breath. COMPARISON: CHEST 2 VIEW 09/22/2018 5:40 PM. TECHNIQUE: 1 view. FINDINGS: Lungs/Pleura: No focal opacities evident. No pleural effusion. No pneumothorax. Mediastinum: Within exam limitations, the cardiomediastinal contour is normal. Other: None. IMPRESSION: Normal single view chest. RADIA
[2019-07-18 02:06] VITALS: BP 142/85
== END 2019-07-18 02:12 | disposition home or self-care (01) ==
LOC: ED 23:11
DX: J06.9 Acute upper respiratory infection, unspecified (principal)
CPT/HCPCS: 71045; 99283

== ENCOUNTER 2019-08-08 07:00 | Outpatient (CLI) | payer MEDICARE ==
[2019-08-08 21:16] LABS: TRICHOMONAS VAGINALIS DNA NEGATIVE (NEGATIVE)
== END 2019-08-08 23:59 | disposition home or self-care (01) ==
LOC: LAB.R 07:00
PROVIDERS: ATTEND Family Medicine
DX: Z86.19 Personal history of other infectious and parasitic diseases (principal)
CPT/HCPCS: 87491; 87591; 87661

== ENCOUNTER 2019-09-30 19:13 | Emergency (ER) | payer MEDICARE ==
[2019-09-30 19:37] VITALS: BP 129/97
[2019-09-30] MEDS ORDERED: guaiFENesin/DEXTROMETHORPHAN 10 ML UDC PO ONE (20:12)
--- NOTE | 2019-09-30 21:11 | ED Physician Documentation ---
History of Present Illness - Stated complaint Stated Complaint: CONGESTION/BILAT EAR PX - Chief complaint Chief Complaint: Resp - History obtained from History obtained from: Patient, Family - History of Present Illness Timing: Last night - Additonal information Additional information: 29 YEAR OLD FEMALE PRESENTS TO THE EMERGENCY DEPARTMENT WITH A PRODUCTIVE COUGH, FEVER AND BILATERAL EAR PAIN SINCE LAST NIGHT. EVEN THOUGH SHE HAS A LISTED ALLERGY TO AMOXICILLIN, SHE TOOK A LEFT OVER DOSE OF AMOXICILLIN FROM HER OWN PREVIOUS PRESCRIPTION WITHOUT IMPROVEMENT. SHE REPORTS OF A RASH WHEN SHE TAKES AMOXICILLIN. PATIENT DENIES SICK CONTACTS OR RECENT HISTORY OF TRAVEL. PATIENT DENIES ANY OTHER ASSOCIATED SYMPTOMS. SHE SMOKES 3 CIGARETTES A DAY. Review of Systems Constitutional: reports: Fever. 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 07/29/13 09/27/18 Albuterol Sulf [Ventolin Hfa 2 puffs INH Q4HR PRN #1 inhaler 04/27/17 09/27/18 Inhaler] Hydrocortisone 1% Oint 1 appful TP TID #2 oint...g. 08/09/18 09/27/18 [Hydrocortisone] Ondansetron Odt [Zofran] 4 mg TL Q6H PRN #10 tablet 09/22/18 09/27/18 Azithromycin [Zithromax] 250 mg PO DAILY #4 tablet 09/27/18 Albuterol Sulf [Ventolin Hfa 1 - 2 puffs INH Q4HR PRN #1 inhaler 11/17/18 Inhaler] Doxycycline Hyclate 100 mg PO BID #14 capsule 11/17/18 Hydrocodone/Chlorphen P-Stirex 5 ml PO BID PRN #90 ml 11/17/18 [Hydrocodone-Chlorphen ER Susp] predniSONE [Deltasone] 60 mg PO DAILY 5 Days tablet 11/17/18 Benzonatate [Tessalon Perle] 100 - 200 mg PO TID PRN #30 capsule 07/18/19 Fluticasone [Flonase] 1 sprays OMARI BID PRN #1 bottle 07/18/19 Azithromycin [Zithromax] 0 mg PO DAILY #6 tablet 09/30/19 guaiFENesin/DEXTROMETHORPHAN 10 ml PO Q6H #120 ml 09/30/19 [Robitussin Dm] - Allergies Allergies/Adverse Reactions: Allergies Allergy/AdvReac Type Severity Reaction Status Date / Time amoxicillin Allergy Mild Rash Verified 11/17/18 21:12 sulfamethoxazole Allergy Mild Rash Verified 11/17/18 21:12 [From Bactrim] tramadol Allergy Mild Rash Verified 11/17/18 21:12 trimethoprim [From Bactrim] Allergy Mild Rash Verified 11/17/18 21:12 - Social History Does the pt smoke?: No Smoking Status: Never smoker Does the pt drink ETOH?: No Does the pt have substance abuse?: Yes - Immunizations Immunizations are current?: Yes - POLST Patient has POLST: No PD ED PE NORMAL - Vitals Vital signs reviewed: Yes - HEENT HEENT: Atraumatic, Other (RIGHT TM WAS EDEMATOUS WITH MIDDLE EAR EFFUSION) - Neck Neck: Supple, no meningeal sign - Cardiac Cardiac: No murmur - Respiratory Respiratory: No respiratory distress, Clear bilaterally - Abdomen Abdomen: Normal bowel sounds - Back Back: No CVA TTP - Derm Derm: Normal color, Warm and dry - Neuro Neuro: Alert and oriented X 3, international marketing intern 2-12 intact Eye Opening: Spontaneous Motor: Obeys Commands - Psych Psych: Normal mood Results - Vitals Vitals: Oxygen O2 Source Room air - Labs Labs: Laboratory Tests 09/30/19 20:40 Influenza A (Rapid) Negative Influenza B (Rapid) Negative PD MEDICAL DECISION MAKING - ED course Complexity details: re-evaluated patient, d/w patient, d/w family ED course: 29 YEAR OLD FEMALE PRESENTS WITH PRODUCTIVE COUGH, BILATERAL EAR PAIN, FEVER WHICH STARTED YESTERDAY. INFLUENZA WAS NEGATIVE. WORK UP WAS CONSISTENT WITH ACUTE RIGHT OTITIS MEDIA. PATIENT WILL BE TREATED WITH A COURSE OF ANTIBIOTIC. SINCE SHE IS ALLERGIC TO AMOXICILLIN, I WILL PRESCRIBE AZITHROMYCIN FOR TREATMENT. OUTPATIENT FOLLOW UP WITH PCP WITHIN 1 WEEK. STRICT RETURN INSTRUCTIONS WERE GIVEN. PATIENT WAS DISCHARGED IN STABLE CONDITION. Departure - Departure Disposition: 01 Home, Self Care Clinical Impression: Upper respiratory infection, Otitis media Condition: Stable Instructions: ED Otitis Media Serous Adult, ED URI Viral Follow-Up: Urszula Huggins ARNP [Primary Care Provider] - Within 3 Days Prescriptions: Azithromycin [Zithromax] 0 mg PO DAILY #6 tablet guaiFENesin/DEXTROMETHORPHAN [Robitussin Dm] 10 ml PO Q6H #120 ml Comments: PLEASE FOLLOW UP WITH YOUR DOCTOR IN 3-5 DAYS. PLEASE DRINK PLENTY OF WATER TO STAY HYDRATED. PLEASE RETURN TO THE EMERGENCY DEPARTMENT IF YOU DEVELOP A FEVER OF 100.4 OR GREATER OR WORSENING SYMPTOMS OR SHORTNESS OF BREATH. Discharge Date/Time: 09/30/19 21:15
== END 2019-09-30 21:15 | disposition home or self-care (01) ==
LOC: ED 19:13
DX: H66.91 Otitis media, unspecified, right ear (principal); J06.9 Acute upper respiratory infection, unspecified; Z88.0 Allergy status to penicillin; F17.210 Nicotine dependence, cigarettes, uncomplicated
CPT/HCPCS: 87275; 87276; 99283; 99284; A9270

== ENCOUNTER 2019-10-15 10:48 | Outpatient (CLI) | payer MEDICARE ==
[2019-10-15 17:37] LABS: BASOPHILS % (AUTO) 0.6 %; EOSINOPHILS # (AUTO) 0.2 10^3/uL (0.0-0.7); EOSINOPHILS % (AUTO) 3.9 %; HGB - HEMOGLOBIN 13.6 g/dL (12.0-16.0); LYMPHOCYTES # (AUTO) 1.8 10^3/uL (1.5-3.5); LYMPHOCYTES % (AUTO) 28.3 %; MEAN CORPUSCULAR HEMOGLOBIN 28.6 pg (27.0-31.0); MEAN CORPUSCULAR HGB CONC 31.9 g/dL (32.0-36.0); MEAN CORPUSCULAR VOLUME 89.5 fL (81.0-99.0); MEAN PLATELET VOLUME 10.2 fL (7.9-10.8); MONOCYTES # (AUTO) 0.5 10^3/uL (0.0-1.0); MONOCYTES % (AUTO) 7.6 %; NEUTROPHILS # (AUTO) 3.7 10^3/uL (1.5-6.6); NEUTROPHILS % (AUTO) 59.3 %; PLT - PLATELET COUNT 320 10^3/uL (130-450); RED BLOOD COUNT 4.76 10^6/uL (4.20-5.40); RED CELL DISTRIBUTION WIDTH 12.8 % (12.0-15.0); WHITE BLOOD COUNT 6.2 x10^3/uL (4.8-10.8)
[2019-10-15 17:39] LABS: ALBUMIN 4.1 g/dL (3.2-5.5); ALBUMIN/GLOBULIN RATIO 1.3 (1.0-2.2); BILIRUBIN,TOTAL 0.7 mg/dL (0.2-1.0); CALCIUM 8.6 mg/dL (8.5-10.3); CREATININE 0.6 mg/dL (0.4-1.0); TOTAL PROTEIN 7.3 g/dL (6.7-8.2)
== END 2019-10-15 10:49 | disposition home or self-care (01) ==
LOC: LAB.S 10:48
PROVIDERS: ATTEND Registered Nurse
DX: R10.9 Unspecified abdominal pain (principal)
CPT/HCPCS: 36415; 80053; 85025

== ENCOUNTER 2020-02-03 18:27 | Emergency (ER) | payer MEDICARE, MEDICAID ==
[2020-02-03] MEDS ORDERED: TETANUS/DIPHTHERIA/PERTUSSIS 0.5 ML SYRINGE IM ONE (20:02)
[2020-02-03] MEDS ORDERED: BACITRACIN ZINC OINT 1 PACKET TOP STA (20:02)
--- NOTE | 2020-02-03 20:06 | ED Physician Documentation ---
History of Present Illness - Stated complaint Stated Complaint: FELL ON NAILS/LEFT SIDE - Chief complaint Chief Complaint: Trauma Ch/Bk - History obtained from History obtained from: Patient - History of Present Illness Timing: Prior to arrival, How many hours ago (2) - Additonal information Additional information: 29-year-old female here with abrasions to the left lower portion of her back and abdomen after she fell this afternoon onto a board in which they were nails. She does not have puncture wounds. She desires her tetanus to be updated. No other associated injury no loss of consciousness head pain. Review of Systems Constitutional: denies: Fever, Chills Cardiac: denies: Chest pain / pressure, Palpitations Respiratory: denies: Dyspnea, Cough Skin: reports: Lesions Musculoskeletal: reports: Other. 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 07/29/13 09/27/18 Albuterol Sulf [Ventolin Hfa 2 puffs INH Q4HR PRN #1 inhaler 04/27/17 09/27/18 Inhaler] Hydrocortisone 1% Oint 1 appful TP TID #2 oint...g. 08/09/18 09/27/18 [Hydrocortisone] Ondansetron Odt [Zofran] 4 mg TL Q6H PRN #10 tablet 09/22/18 09/27/18 Azithromycin [Zithromax] 250 mg PO DAILY #4 tablet 09/27/18 Albuterol Sulf [Ventolin Hfa 1 - 2 puffs INH Q4HR PRN #1 inhaler 11/17/18 Inhaler] Doxycycline Hyclate 100 mg PO BID #14 capsule 11/17/18 Hydrocodone/Chlorphen P-Stirex 5 ml PO BID PRN #90 ml 11/17/18 [Hydrocodone-Chlorphen ER Susp] predniSONE [Deltasone] 60 mg PO DAILY 5 Days tablet 11/17/18 Benzonatate [Tessalon Perle] 100 - 200 mg PO TID PRN #30 capsule 07/18/19 Fluticasone [Flonase] 1 sprays OMARI BID PRN #1 bottle 07/18/19 Azithromycin [Zithromax] 0 mg PO DAILY #6 tablet 09/30/19 guaiFENesin/DEXTROMETHORPHAN 10 ml PO Q6H #120 ml 09/30/19 [Robitussin Dm] - Allergies Allergies/Adverse Reactions: Allergies Allergy/AdvReac Type Severity Reaction Status Date / Time amoxicillin Allergy Mild Rash Verified 02/03/20 18:32 sulfamethoxazole Allergy Mild Rash Verified 02/03/20 18:32 [From Bactrim] tramadol Allergy Mild Rash Verified 02/03/20 18:32 trimethoprim [From Bactrim] Allergy Mild Rash Verified 02/03/20 18:32 - Social History Does the pt smoke?: No Smoking Status: Never smoker Does the pt drink ETOH?: No Does the pt have substance abuse?: Yes - Immunizations Immunizations are current?: Yes - POLST Patient has POLST: No PD ED PE NORMAL - General General: Alert and oriented X 3, No acute distress, Well developed/nourished - HEENT HEENT: EOMI - Neck Neck: Supple, no meningeal sign, No bony TTP, No adenopathy - Cardiac Cardiac: RRR, No murmur - Abdomen Abdomen: Normal bowel sounds - Back Back: No CVA TTP - Derm Derm: Normal color, Warm and dry, Other (3 superficial abrasions each less than 0.25 cm left lower back / lateral abdominal area. There is no puncture wound.) - Extremities Extremities: No deformity, No tenderness to palpate, Normal ROM s pain - Neuro Neuro: Alert and oriented X 3, glassware verifier 2-12 intact, Normal speech, Other (normal gait) Results - Vitals Vitals: Vital Signs - 24 hr 02/03/20 18:32 Temperature 36.6 C Heart Rate 86 Respiratory 16 Rate Blood Pressure 136/86 H O2 Saturation 97 Oxygen O2 Source Room air PD MEDICAL DECISION MAKING - ED course Complexity details: reviewed results, re-evaluated patient, d/w patient ED course: 29-year-old female here with superficial abrasions left lower back and lateral side of abdomen after falling onto a board in which there were some nails exposed. These are superficial abrasions without puncture. Patient's tetanus is updated today. Advised warm soap and water and bacitracin to the abrasions. Return to the emergency department for any concerns of infection. Departure - Departure Disposition: 01 Home, Self Care Clinical Impression: Abrasion Condition: Stable Instructions: ED Abrasion Comments: Sveta your tetanus was updated today. It is good for the next 7 to 10 years.Return here if you have any concerns of infection such as increased redness swelling milky drainage or fevers It is okay to wash the abrasions with warm soap and water and apply any antibiotic ointment over them.
[2020-02-03 20:32] VITALS: BP 121/77
== END 2020-02-03 20:31 | disposition home or self-care (01) ==
LOC: ED 18:27
DX: S30.810A Abrasion of lower back and pelvis, initial encounter (principal); S30.811A Abrasion of abdominal wall, initial encounter; W01.118A Fall on same level from slipping, tripping and stumbling with subsequent striking against other sharp object, initial encounter; Z23 Encounter for immunization
CPT/HCPCS: 90471; 90715; 99283; 99284; A9270

== ENCOUNTER 2021-01-22 22:01 | Emergency (ER) | payer MEDICARE, MEDICAID ==
--- NOTE | 2021-01-22 22:40 | ED Physician Documentation ---
PD HPI ABD PAIN - Stated complaint Stated Complaint: ABD PX - Chief complaint Chief Complaint: Abd Pain - History obtained from History obtained from: Patient - History of Present Illness Timing - onset: How many days ago (2) Timing - details: Gradual onset, Intermittant Pain level now: 7 Quality: Dull, Pain Location: Other (across lower abdomen) Radiation: Other (does not radiate) Improved by: Other (no ameliorating factors) Worsened by: Other (urinating) Similar symptoms before: Diagnosis (similar to previous UTIs) Recently seen: Not recently seen Review of Systems Constitutional: denies: Fever, Chills, Sweats Cardiac: reports: Reviewed and negative Respiratory: reports: Reviewed and negative GI: reports: Abdominal Pain. denies: Abdominal Swelling, Nausea, Vomiting, Constipation, Diarrhea : reports: Dysuria. 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 : None HEENT: None Psych: Depression, Anxiety Musculoskeletal: None Derm: None - Past Surgical History Past Surgical History: Yes Ortho: Other - Present Medications Home Medications: Ambulatory Orders Medication Instructions Recorded Confirmed Albuterol [Ventolin Hfa] 2 puffs INH Q4H PRN #1 inhaler 02/25/13 01/22/21 - Allergies Allergies/Adverse Reactions: Allergies Allergy/AdvReac Type Severity Reaction Status Date / Time amoxicillin Allergy Mild Rash Verified 01/22/21 22:09 sulfamethoxazole Allergy Mild Rash Verified 01/22/21 22:09 [From Bactrim] tramadol Allergy Mild Rash Verified 01/22/21 22:09 trimethoprim [From Bactrim] Allergy Mild Rash Verified 01/22/21 22:09 - Social History Does the pt smoke?: No Smoking Status: Never smoker Does the pt drink ETOH?: No Does the pt have substance abuse?: No - Immunizations Immunizations are current?: Yes - POLST Patient has POLST: No PD ED PE NORMAL - Vitals Vital signs reviewed: Yes - General General: Alert and oriented X 3, No acute distress, Well developed/nourished - Cardiac Cardiac: RRR, No murmur - Respiratory Respiratory: No respiratory distress, Clear bilaterally - Abdomen Abdomen: Normal bowel sounds, Soft, Non tender, Non distended - Back Back: No CVA TTP - Derm Derm: Normal color, Warm and dry Results - Vitals Vitals: Vital Signs - 24 hr 01/22/21 01/23/21 22:05 00:01 Temperature 36.6 C 36.0 C L Heart Rate 91 85 Respiratory 18 16 Rate Blood Pressure 135/94 H 125/68 O2 Saturation 100 100 Oxygen O2 Source Room air - Labs Labs: Laboratory Tests 01/22/21 01/22/21 01/22/21 22:18 23:09 23:09 WBC 6.6 RBC 4.64 Hgb 13.8 Hct 41.7 MCV 89.9 MCH 29.7 MCHC 33.1 RDW 12.4 Plt Count 282 MPV 9.4 Neut # (Auto) 4.0 Lymph # (Auto) 1.8 [place] # (Auto) 0.5 Eos # (Auto) 0.2 Baso # (Auto) 0.1 Absolute Nucleated RBC 0.00 Nucleated RBC % 0.0 Sodium 139 Potassium 3.8 Chloride 103 Carbon Dioxide 26 Anion Gap 10.0 BUN 11 Creatinine 0.8 Estimated GFR (MDRD) 84 L Glucose 104 H Calcium 9.2 Total Bilirubin 0.8 AST 15 ALT 17 Alkaline Phosphatase 42 Total Protein 7.3 Albumin 4.4 Globulin 2.9 Albumin/Globulin Ratio 1.5 Lipase 26 Urine Color Cancelled Urine Clarity Cancelled Urine pH Cancelled Ur Specific [place] Cancelled Urine Protein Cancelled Urine Glucose (UA) Cancelled Urine Ketones Cancelled Urine Occult Blood Cancelled Urine Nitrite Cancelled Urine Bilirubin Cancelled Urine Urobilinogen Cancelled Ur Leukocyte Esterase Cancelled Ur Microscopic Review Cancelled Urine Culture Comments Cancelled Urine HCG, Qual 01/22/21 23:40 WBC RBC Hgb Hct MCV MCH MCHC RDW Plt Count MPV Neut # (Auto) Lymph # (Auto) [place] # (Auto) Eos # (Auto) Baso # (Auto) Absolute Nucleated RBC Nucleated RBC % Sodium Potassium Chloride Carbon Dioxide Anion Gap BUN Creatinine Estimated GFR (MDRD) Glucose Calcium Total Bilirubin AST ALT Alkaline Phosphatase Total Protein Albumin Globulin Albumin/Globulin Ratio Lipase Urine Color YELLOW Urine Clarity CLEAR Urine pH 6.0 Ur Specific [place] <=1.005 Urine Protein NEGATIVE Urine Glucose (UA) NEGATIVE Urine Ketones NEGATIVE Urine Occult Blood NEGATIVE Urine Nitrite NEGATIVE Urine Bilirubin NEGATIVE Urine Urobilinogen 0.2 (NORMAL) Ur Leukocyte Esterase NEGATIVE Ur Microscopic Review NOT INDICATED Urine Culture Comments NOT INDICATED Urine HCG, Qual NEGATIVE PD MEDICAL DECISION MAKING - ED course Complexity details: reviewed old records, reviewed results, re-evaluated patient, considered differential, d/w patient ED course: c/o 2 days of intermittent abdominal pain across lower abdomen, worse when urinating. She also notes urine appears darker than usual and has unusual odor to it; she feels these symptoms are similar to a previous UTI. Blood tests are unremarkable. Her first urine sample apparently did not have the lid on properly, as it had leaked into the bag by the time the lab received the sample. As a result, she was held in ED until she eventually was able to provide another sample; this UA result is unremarkable and without evidence of infection. She is nontender on abdominal exam, afebrile, and in NAD. I reviewed results with patient and explained that the results are reassuring but do not yield a diagnosis at this time. I encouraged her to return if worse, and to follow up with her doctor in 2-3 days if symptoms persist Departure - Departure Disposition: 01 Home, Self Care Clinical Impression: Abdominal pain Qualifiers: Abdominal location: lower abdomen, unspecified Qualified Code(s): R10.30 - Lower abdominal pain, unspecified Condition: Good Instructions: ED Abdominal Pain Unkn Cause Follow-Up: Rossi Lewis ARNP [Primary Care Provider] - Within 3 Days Discharge Date/Time: 01/23/21 00:02
[2021-01-22 23:15] LABS: BASOPHILS # (AUTO) 0.1 10^3/uL (0.0-0.1); BASOPHILS % (AUTO) 0.8 %; EOSINOPHILS # (AUTO) 0.2 10^3/uL (0.0-0.7); EOSINOPHILS % (AUTO) 2.7 %; HCT - HEMATOCRIT 41.7 % (37.0-47.0); HGB - HEMOGLOBIN 13.8 g/dL (12.0-16.0); LYMPHOCYTES # (AUTO) 1.8 10^3/uL (1.5-3.5); LYMPHOCYTES % (AUTO) 27.6 %; MEAN CORPUSCULAR HEMOGLOBIN 29.7 pg (27.0-31.0); MEAN CORPUSCULAR HGB CONC 33.1 g/dL (32.0-36.0); MEAN CORPUSCULAR VOLUME 89.9 fL (81.0-99.0); MEAN PLATELET VOLUME 9.4 fL (7.9-10.8); MONOCYTES # (AUTO) 0.5 10^3/uL (0.0-1.0); NEUTROPHILS % (AUTO) 60.6 %; PLT - PLATELET COUNT 282 10^3/uL (130-450); RED BLOOD COUNT 4.64 10^6/uL (4.20-5.40); RED CELL DISTRIBUTION WIDTH 12.4 % (12.0-15.0); WHITE BLOOD COUNT 6.6 x10^3/uL (4.8-10.8)
[2021-01-22 23:28] LABS: ALBUMIN 4.4 g/dL (3.2-5.5); ALBUMIN/GLOBULIN RATIO 1.5 (1.0-2.2); BILIRUBIN,TOTAL 0.8 mg/dL (0.2-1.0); CALCIUM 9.2 mg/dL (8.5-10.3); CREATININE 0.8 mg/dL (0.4-1.0); POTASSIUM 3.8 mmol/L (3.5-5.0); TOTAL PROTEIN 7.3 g/dL (6.7-8.2)
[2021-01-22 23:45] LABS: BILIRUBIN,URINE NEGATIVE (NEGATIVE); GLUCOSE, URINE (UA) NEGATIVE (NEGATIVE); KETONES,URINE (UA) NEGATIVE (NEGATIVE); LEUKOCYTE ESTERASE, URINE NEGATIVE (NEGATIVE); NITRITE,URINE NEGATIVE (NEGATIVE); OCCULT BLOOD,URINE NEGATIVE (NEGATIVE); PROTEIN,URINE NEGATIVE (NEGATIVE); UROBILINOGEN,URINE 0.2 (NORMAL) E.U./dL (NORMAL)
[2021-01-22 23:48] LABS: CLARITY,URINE CLEAR (CLEAR); HCG UR QUAL NEGATIVE
[2021-01-23 00:02] VITALS: BP 125/68
== END 2021-01-23 00:02 | disposition home or self-care (01) ==
LOC: ED 22:01
DX: R10.30 Lower abdominal pain, unspecified (principal); R30.0 Dysuria
CPT/HCPCS: 36415; 80053; 81001; 81003; 81025; 83690; 85025; 87086; 99283; 99284

== ENCOUNTER 2021-03-25 09:45 | Outpatient (CLI) | payer MEDICARE, MEDICAID ==
--- NOTE | 2021-03-25 10:33 | XRAY Report ---
PROCEDURE: Abdomen 2 View X-Ray INDICATIONS: EASY BRUISING, ABD PAIN TECHNIQUE: 2 views of the abdomen were acquired. COMPARISON: None FINDINGS: Surgical changes and devices: None. Bowel: No pneumoperitoneum. The bowel gas pattern is normal. Mild fecal stasis in the colon is see n. Soft tissues: No masses; visualized solid organ contours appear normal in size. No suspicious abdom inal calcifications. Bones: No suspicious bony abnormalities. IMPRESSION: No evidence of bowel obstruction or gross free air. Mild fecal stasis in the colon. Reviewed by: Rob Self MD on 03/25/2021 10:32 AM PDT Approved by: Rob Self MD on 03/25/2021 10:32 AM PDT Station ID: [id number]
[2021-03-25 14:30] LABS: BASOPHILS # (AUTO) 0.1 10^3/uL (0.0-0.1); BASOPHILS % (AUTO) 1.1 %; EOSINOPHILS # (AUTO) 0.2 10^3/uL (0.0-0.7); HCT - HEMATOCRIT 43.1 % (37.0-47.0); HGB - HEMOGLOBIN 13.9 g/dL (12.0-16.0); LYMPHOCYTES # (AUTO) 1.5 10^3/uL (1.5-3.5); LYMPHOCYTES % (AUTO) 31.8 %; MEAN CORPUSCULAR HEMOGLOBIN 29.4 pg (27.0-31.0); MEAN CORPUSCULAR HGB CONC 32.3 g/dL (32.0-36.0); MEAN CORPUSCULAR VOLUME 91.1 fL (81.0-99.0); MEAN PLATELET VOLUME 10.5 fL (7.9-10.8); MONOCYTES # (AUTO) 0.4 10^3/uL (0.0-1.0); MONOCYTES % (AUTO) 8.4 %; NEUTROPHILS # (AUTO) 2.6 10^3/uL (1.5-6.6); NEUTROPHILS % (AUTO) 54.5 %; PLT - PLATELET COUNT 292 10^3/uL (130-450); RED BLOOD COUNT 4.73 10^6/uL (4.20-5.40); WHITE BLOOD COUNT 4.8 x10^3/uL (4.8-10.8)
[2021-03-25 14:34] LABS: INR 1.1 (0.8-1.2)
[2021-03-25 14:41] LABS: PARTIAL THROMBOPLASTIN TIME 31.4 secs (24.9-33.3)
[2021-03-25 14:50] LABS: ALBUMIN 4.3 g/dL (3.2-5.5); ALBUMIN/GLOBULIN RATIO 1.5 (1.0-2.2); BILIRUBIN,TOTAL 0.8 mg/dL (0.2-1.0); CALCIUM 9.3 mg/dL (8.5-10.3); CREATININE 0.6 mg/dL (0.4-1.0); POTASSIUM 3.8 mmol/L (3.5-5.0); TOTAL PROTEIN 7.2 g/dL (6.7-8.2)
[2021-03-25 14:57] LABS: THYROID STIMULATING HORMONE 1.12 uIU/mL (0.34-5.60)
== END 2021-03-25 09:46 | disposition home or self-care (01) ==
LOC: DI.S 09:45
PROVIDERS: ATTEND Registered Nurse
DX: R23.8 Other skin changes (principal); R10.9 Unspecified abdominal pain; F17.200 Nicotine dependence, unspecified, uncomplicated; J45.909 Unspecified asthma, uncomplicated; K21.9 Gastro-esophageal reflux disease without esophagitis; Z13.29 Encounter for screening for other suspected endocrine disorder
CPT/HCPCS: 36415; 80053; 81001; 84443; 85025; 85610; 85730; 87086

== ENCOUNTER 2021-03-28 08:00 | Outpatient (CLI) | payer MEDICARE, MEDICAID ==
[2021-03-28 14:44] LABS: BILIRUBIN,URINE NEGATIVE (NEGATIVE); GLUCOSE, URINE (UA) NEGATIVE (NEGATIVE); KETONES,URINE (UA) NEGATIVE (NEGATIVE); LEUKOCYTE ESTERASE, URINE NEGATIVE (NEGATIVE); NITRITE,URINE NEGATIVE (NEGATIVE); OCCULT BLOOD,URINE NEGATIVE (NEGATIVE); PROTEIN,URINE NEGATIVE (NEGATIVE); UROBILINOGEN,URINE 0.2 (NORMAL) E.U./dL (NORMAL)
[2021-03-28 14:47] LABS: CLARITY,URINE CLEAR (CLEAR)
[2021-03-28 14:49] LABS: BACTERIA,URINE Rare /HPF (None Seen); RBC,URINE 0-5 /HPF (0-5); SQUAMOUS EPITHELIAL CELL,UR FEW Squamous (<= Few); WBC,URINE 0-3 /HPF (0-5)
[2021-03-29 16:01] LABS: FECAL OCCULT BLOOD (FIT) NEGATIVE (NEGATIVE)
== END 2021-03-28 23:59 | disposition home or self-care (01) ==
LOC: LAB.S 08:00
PROVIDERS: ATTEND Registered Nurse
DX: R10.9 Unspecified abdominal pain (principal); R23.8 Other skin changes
CPT/HCPCS: 81001; 82274; 87086

== ENCOUNTER 2021-03-29 21:08 | Outpatient (CLI) | payer MEDICARE, MEDICAID ==
[2021-03-30 16:10] LABS: FECAL OCCULT BLOOD (FIT) NEGATIVE (NEGATIVE)
== END 2021-03-29 23:59 | disposition home or self-care (01) ==
LOC: LAB.R 21:08
PROVIDERS: ATTEND Registered Nurse
DX: R23.8 Other skin changes (principal); R10.9 Unspecified abdominal pain
CPT/HCPCS: 81599; 82274; 87045; 87177; 87209; 87427; 87449

== ENCOUNTER 2021-09-21 08:00 | Outpatient (CLI) | payer MEDICARE, MEDICAID ==
--- NOTE | 2021-09-21 10:36 | XRAY Report ---
PROCEDURE: Chest 2 View X-Ray INDICATIONS: PNEUMONIA TECHNIQUE: 2 view(s) of the chest. COMPARISON: July 18, 2019 FINDINGS: SUPPORT DEVICES: None. LUNGS/PLEURA: No focal consolidation, pleural effusion or space-occupying pneumothorax. MEDIASTINUM: The cardiomediastinal silhouette is within normal limits. BONES/SOFT TISSUES: No acute abnormality. 7 mm ossific lesion projecting along the left superior saundra ral head. IMPRESSION: 1.No acute cardiopulmonary abnormality. Reviewed by: Alvin Cordero MD on 09/21/2021 10:34 AM [facility] Approved by: Alvin Cordero MD on 09/21/2021 10:34 AM [facility] Station ID: [id number]
== END 2021-09-21 23:59 | disposition home or self-care (01) ==
LOC: DI.S 08:00
PROVIDERS: ATTEND Physician Assistant Medical
DX: J18.9 Pneumonia, unspecified organism (principal)

== ENCOUNTER 2021-11-03 08:00 | Outpatient (CLI) | payer MEDICARE, MEDICAID ==
[2021-11-03 19:58] LABS: BASOPHILS % (AUTO) 0.6 %; EOSINOPHILS # (AUTO) 0.2 10^3/uL (0.0-0.7); EOSINOPHILS % (AUTO) 2.5 %; HCT - HEMATOCRIT 41.7 % (37.0-47.0); HGB - HEMOGLOBIN 13.5 g/dL (12.0-16.0); LYMPHOCYTES # (AUTO) 2.1 10^3/uL (1.5-3.5); LYMPHOCYTES % (AUTO) 33.5 %; MEAN CORPUSCULAR HEMOGLOBIN 29.1 pg (27.0-31.0); MEAN CORPUSCULAR HGB CONC 32.4 g/dL (32.0-36.0); MEAN CORPUSCULAR VOLUME 89.9 fL (81.0-99.0); MONOCYTES # (AUTO) 0.5 10^3/uL (0.0-1.0); MONOCYTES % (AUTO) 8.1 %; NEUTROPHILS # (AUTO) 3.5 10^3/uL (1.5-6.6); NEUTROPHILS % (AUTO) 55.1 %; PLT - PLATELET COUNT 291 10^3/uL (130-450); RED BLOOD COUNT 4.64 10^6/uL (4.20-5.40); RED CELL DISTRIBUTION WIDTH 13.2 % (12.0-15.0); WHITE BLOOD COUNT 6.3 x10^3/uL (4.8-10.8)
[2021-11-03 20:16] LABS: ALBUMIN 4.2 g/dL (3.2-5.5); ALBUMIN/GLOBULIN RATIO 1.3 (1.0-2.2); BILIRUBIN,TOTAL 0.3 mg/dL (0.2-1.0); CALCIUM 9.3 mg/dL (8.5-10.3); CREATININE 0.8 mg/dL (0.4-1.0); CRP - C-REACTIVE PROTEIN 1.5 mg/dL (0-1.0); TOTAL PROTEIN 7.4 g/dL (6.7-8.2)
== END 2021-11-03 23:59 ==
LOC: LAB.S 08:00
PROVIDERS: ATTEND Registered Nurse
DX: R10.32 Left lower quadrant pain (principal)
CPT/HCPCS: 36415; 80053; 85025; 85651; 86140; 87086

== ENCOUNTER 2022-07-14 10:59 | Outpatient (CLI) | payer MEDICARE, MEDICAID ==
[2022-07-14 15:28] LABS: BASOPHILS % (AUTO) 0.7 %; EOSINOPHILS # (AUTO) 0.2 10^3/uL (0.0-0.7); EOSINOPHILS % (AUTO) 3.5 %; HCT - HEMATOCRIT 43.6 % (37.0-47.0); HGB - HEMOGLOBIN 13.8 g/dL (12.0-16.0); LYMPHOCYTES # (AUTO) 1.4 10^3/uL (1.5-3.5); MEAN CORPUSCULAR HEMOGLOBIN 28.9 pg (27.0-31.0); MEAN CORPUSCULAR HGB CONC 31.7 g/dL (32.0-36.0); MEAN CORPUSCULAR VOLUME 91.4 fL (81.0-99.0); MEAN PLATELET VOLUME 10.2 fL (7.9-10.8); MONOCYTES # (AUTO) 0.4 10^3/uL (0.0-1.0); MONOCYTES % (AUTO) 7.3 %; NEUTROPHILS # (AUTO) 3.6 10^3/uL (1.5-6.6); NEUTROPHILS % (AUTO) 63.3 %; PLT - PLATELET COUNT 323 10^3/uL (130-450); RED BLOOD COUNT 4.77 10^6/uL (4.20-5.40); RED CELL DISTRIBUTION WIDTH 12.5 % (12.0-15.0); WHITE BLOOD COUNT 5.7 x10^3/uL (4.8-10.8)
[2022-07-14 16:13] LABS: ALBUMIN 4.1 g/dL (3.2-5.5); ALBUMIN/GLOBULIN RATIO 1.2 (1.0-2.2); ALKALINE PHOSPHATASE 46 IU/L (42-121); ALT ALANINE AMINOTRANSFERASE 19 IU/L (10-60); AST ASPARTATE AMINOTRANSFERASE 19 IU/L (10-42); BILIRUBIN,TOTAL 0.4 mg/dL (0.2-1.0); BUN - BLOOD UREA NITROGEN 8 mg/dL (6-20); CALCIUM 9.3 mg/dL (8.5-10.3); CARBON DIOXIDE - CO2 29 mmol/L (21-32); CHLORIDE 99 mmol/L (101-111); CREATININE 0.8 mg/dL (0.4-1.0); GFR - MDRD 83 (>89); GLUCOSE 113 mg/dL (70-100); POTASSIUM 3.4 mmol/L (3.5-5.0); SODIUM 137 mmol/L (135-145); TOTAL PROTEIN 7.4 g/dL (6.7-8.2)
[2022-07-14 16:19] LABS: CRP - C-REACTIVE PROTEIN < 1.0 mg/dL (0-1.0)
== END 2022-07-14 11:00 | disposition home or self-care (01) ==
LOC: LAB.S 10:59
PROVIDERS: ATTEND Registered Nurse
DX: K04.7 Periapical abscess without sinus (principal); R11.10 Vomiting, unspecified
CPT/HCPCS: 36415; 80053; 85025; 86140

== ENCOUNTER 2022-09-21 12:49 | Outpatient (CLI) | payer MEDICARE, MEDICAID | END 2022-09-21 23:59 | disposition EMS.NT | LOC: EMS 12:49 | DX: R10.32 Left lower quadrant pain (principal); R11.10 Vomiting, unspecified ==

== ENCOUNTER 2022-09-21 13:29 | Emergency (ER) | payer MEDICARE, MEDICAID ==
[2022-09-21 13:41] VITALS: BP 139/88
[2022-09-21 14:14] LABS: BASOPHILS # (AUTO) 0.1 10^3/uL (0.0-0.1); BASOPHILS % (AUTO) 0.5 %; EOSINOPHILS # (AUTO) 0.1 10^3/uL (0.0-0.7); EOSINOPHILS % (AUTO) 1.3 %; HCT - HEMATOCRIT 41.3 % (37.0-47.0); HGB - HEMOGLOBIN 13.7 g/dL (12.0-16.0); LYMPHOCYTES # (AUTO) 1.3 10^3/uL (1.5-3.5); LYMPHOCYTES % (AUTO) 12.5 %; MEAN CORPUSCULAR HEMOGLOBIN 29.7 pg (27.0-31.0); MEAN CORPUSCULAR HGB CONC 33.2 g/dL (32.0-36.0); MEAN CORPUSCULAR VOLUME 89.4 fL (81.0-99.0); MEAN PLATELET VOLUME 9.3 fL (7.9-10.8); MONOCYTES # (AUTO) 0.5 10^3/uL (0.0-1.0); MONOCYTES % (AUTO) 4.8 %; NEUTROPHILS # (AUTO) 8.5 10^3/uL (1.5-6.6); NEUTROPHILS % (AUTO) 80.6 %; PLT - PLATELET COUNT 304 10^3/uL (130-450); RED BLOOD COUNT 4.62 10^6/uL (4.20-5.40); RED CELL DISTRIBUTION WIDTH 12.7 % (12.0-15.0); WHITE BLOOD COUNT 10.6 x10^3/uL (4.8-10.8)
[2022-09-21 14:30] LABS: ALBUMIN 4.2 g/dL (3.2-5.5); ALBUMIN/GLOBULIN RATIO 1.3 (1.0-2.2); BILIRUBIN,TOTAL 0.6 mg/dL (0.2-1.0); CALCIUM 9.2 mg/dL (8.5-10.3); CREATININE 0.6 mg/dL (0.4-1.0); POTASSIUM 3.6 mmol/L (3.5-5.0); TOTAL PROTEIN 7.5 g/dL (6.7-8.2)
[2022-09-21] MEDS ORDERED: ONDANSETRON 4 MG/2 ML VIAL IVP STA (14:42)
[2022-09-21] MEDS ORDERED: HYDROmorphone 1 MG/ML CARPUJECT IVP STA (14:42)
[2022-09-21] MEDS ORDERED: KETOROLAC 15 MG/ML VIAL IVP STA (14:42)
--- NOTE | 2022-09-21 14:43 | ED Physician Documentation ---
PD HPI ABD PAIN - Stated complaint Stated Complaint: ABD PX - Chief complaint Chief Complaint: Abd Pain - History obtained from History obtained from: Patient - Additional information Additional information: She developed relatively sudden onset right lower quadrant pain starting around 11 AM this morning. Its associate with nausea and single episode of vomiting. She is currently midcycle on her menses. No history of abdominal surgeries. No fevers. No cramping or bleeding or vaginal discharge. 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 : None HEENT: None Psych: Depression, Anxiety Musculoskeletal: None Derm: None - Past Surgical History Past Surgical History: Yes Ortho: Other - Present Medications Home Medications: Ambulatory Orders Medication Instructions Recorded Confirmed Albuterol [Ventolin Hfa] 2 puffs INH Q4H PRN #1 inhaler 02/25/13 01/22/21 Ibuprofen [Motrin] 800 mg PO Q8H PRN #20 tablet 09/21/22 Oxycodone HCl/Acetaminophen 1 - 2 each PO Q6H PRN #14 tablet 09/21/22 [Percocet 5-325 mg Tablet] - Allergies Allergies/Adverse Reactions: Allergies Allergy/AdvReac Type Severity Reaction Status Date / Time amoxicillin Allergy Mild Rash Verified 01/22/21 22:09 sulfamethoxazole Allergy Mild Rash Verified 01/22/21 22:09 [From Bactrim] tramadol Allergy Mild Rash Verified 01/22/21 22:09 trimethoprim [From Bactrim] Allergy Mild Rash Verified 01/22/21 22:09 - Social History Does the pt smoke?: No Smoking Status: Never smoker Does the pt drink ETOH?: No Does the pt have substance abuse?: No - Immunizations Immunizations are current?: Yes - POLST Patient has POLST: No PD ED PE NORMAL - Vitals Vital signs reviewed: Yes - General General: Alert and oriented X 3, Other (Appears uncomfortable) - Cardiac Cardiac: RRR, No murmur - Respiratory Respiratory: No respiratory distress - Abdomen Abdomen: Normal bowel sounds, Soft, Other (Mild right lower quadrant tenderness without surgical signs) - Derm Derm: No rash - Extremities Extremities: No edema, No calf tenderness / cord - Neuro Neuro: Alert and oriented X 3, Normal speech Results - Vitals Vitals: Vital Signs - 24 hr 09/21/22 13:38 Temperature 36.5 C Heart Rate 77 Respiratory 18 Rate Blood Pressure 139/88 H O2 Saturation 99 Oxygen O2 Source Room air - Labs Labs: Laboratory Tests 09/21/22 09/21/22 09/21/22 14:11 14:11 14:11 WBC 10.6 RBC 4.62 Hgb 13.7 Hct 41.3 MCV 89.4 MCH 29.7 MCHC 33.2 RDW 12.7 Plt Count 304 MPV 9.3 Neut # (Auto) 8.5 H Lymph # (Auto) 1.3 L [place] # (Auto) 0.5 Eos # (Auto) 0.1 Baso # (Auto) 0.1 Absolute Nucleated RBC 0.00 Nucleated RBC % 0.0 Sodium 138 Potassium 3.6 Chloride 105 Carbon Dioxide 22 Anion Gap 11.0 BUN 9 Creatinine 0.6 Estimated GFR (MDRD) 116 Glucose 131 H Calcium 9.2 Total Bilirubin 0.6 AST 18 ALT 23 Alkaline Phosphatase 43 Total Protein 7.5 Albumin 4.2 Globulin 3.3 Albumin/Globulin Ratio 1.3 Lipase 27 Serum HCG, Qual NEGATIVE - Rads (name of study) Pelvic ultrasound demonstrating 3 cm right ovarian cyst without torsion Radiology: Final report received, EMP read indepedently PD Medical Decision Making - ED course ED course: 32-year-old woman presents with sudden right pelvic pain and she is midcycle. This is most consistent with ovarian cyst or torsion. She was medicated here with improvement in her pain. Appendicitis is considered but given the positive ultrasound for ovarian cyst and sudden onset pain, I consider this unlikely. CBC reviewed and unremarkable. CMP reviewed and unremarkable. Serum test done as the patient was unable to urinate while here except for small amount and this was negative as well. Departure - Departure Disposition: 01 Home, Self Care Clinical Impression: Ovarian cyst Qualifiers: Laterality: right Qualified Code(s): N83.201 - Unspecified ovarian cyst, right side Condition: Good Record reviewed to determine appropriate education?: Yes Instructions: ED Cyst Ovarian Prescriptions: Ibuprofen [Motrin] 800 mg PO Q8H PRN #20 tablet PRN Reason: PAIN &/OR FEVER Oxycodone HCl/Acetaminophen [Percocet 5-325 mg Tablet] 1 - 2 each PO Q6H PRN #14 tablet PRN Reason: pain Comments: As discussed, you have an ovarian cyst, 3 cm. There is no sign of twisting or torsion. You should follow-up with your physician as scheduled for reevaluation. Recommend repeat ultrasound in 6 weeks to demonstrate resolution. I sent your prescription electronically to the [facility] pharmacy here in [place]. I am prescribing a short course of narcotic pain medication for you. These are potentially dangerous and addictive medications that should be used carefully. These medications may constipate you. Take an [id number]-[id number] stool softener (docusate) twice daily with plenty of water while taking these medications. If you go 24 hours without a bowel movement, take jwhp-fhd-brlbhrh miralax, per package instructions. Do not drink or drive while taking these medications. If you received narcotic or sedating medications while in the emergency department, do not drive for 24 hours. Store this medication in a safe, secure place and out of reach of children. It is a violation of federal law to give or sell this medication to another person or to use in a manner other than prescribed. The ED will not refill narcotic prescriptions, including prescriptions lost or stolen. To dispose of unwanted medications: 1. [facility] [address] in [place] has a medication drop box. They accept prescription medications (in pill form) Sunday through Sunday 9:00 a.m. to 5:00 p.m. 2. The [facility] [employer] accepts prescription medications (in pill form only) for disposal year round. Call for more information. 3. Contact the [facility] for the next [facility] sponsored prescription drug collection event. , [phone], or [phone]; Note that many narcotic pain relievers also contain Tylenol/acetaminophen. Please ensure that your total dose of acetaminophen from all sources does not exceed 3 g (3000 mg) per day. Discharge Date/Time: 09/21/22 17:24
[2022-09-21] MEDS ORDERED: KETOROLAC 30 MG/ML VIAL IM STA (14:47)
[2022-09-21] MEDS ORDERED: ONDANSETRON ODT 4 MG TABLET TL STA (14:47)
[2022-09-21] MEDS ORDERED: HYDROmorphone 1 MG/ML CARPUJECT IM STA (14:47)
--- NOTE | 2022-09-21 16:04 | Ultrasound Report ---
PROCEDURE: Pelvic w/Transvag+Doppler Comp INDICATIONS: R pelvic pain TECHNIQUE: Real-time scanning was performed of the pelvic organs, with image documentation. Additional endovagi nal scanning was necessary due to incomplete visualization of the adnexal and endometrial structures by transabdominal scanning. Doppler interrogation was performed of the ovaries bilaterally. COMPARISON: None. FINDINGS: No pathologic free abdominal or pelvic fluid. Uterus: Uterus is normal in size at 8.4 x 4.1 x 6.1 cm. The endometrium measures 12 mm in combined thickness. Ovaries: 30 mm right ovarian cyst is present. Left ovary is grossly unremarkable. Normal appearing a rterial and venous waveforms are confirmed to each ovary.] Other: No free pelvic fluid. IMPRESSION: No acute process. Reviewed by: Sina Levy MD on 09/21/2022 4:03 PM PST Approved by: Sina Levy MD on 09/21/2022 4:03 PM PST Station ID: [id number]
[2022-09-21 16:51] LABS: HCG,QUALITATIVE BLOOD NEGATIVE
[2022-09-21] MEDS ORDERED: oxyCODONE 5 MG TABLET PO STA (17:03)
== END 2022-09-21 17:24 | disposition home or self-care (01) ==
LOC: ED 13:29
DX: N83.201 Unspecified ovarian cyst, right side (principal)
CPT/HCPCS: 36415; 76830; 76856; 80053; 83690; 84703; 85025; 93975; 96372; 99284; A9270; J1170; Q0162

== ENCOUNTER 2022-10-04 11:06 | Outpatient (CLI) | payer MEDICARE, MEDICAID ==
[2022-10-04 14:55] LABS: BASOPHILS % (AUTO) 0.6 %; EOSINOPHILS # (AUTO) 0.2 10^3/uL (0.0-0.7); EOSINOPHILS % (AUTO) 4.2 %; HCT - HEMATOCRIT 41.2 % (37.0-47.0); HGB - HEMOGLOBIN 13.4 g/dL (12.0-16.0); LYMPHOCYTES # (AUTO) 1.7 10^3/uL (1.5-3.5); LYMPHOCYTES % (AUTO) 35.8 %; MEAN CORPUSCULAR HEMOGLOBIN 29.1 pg (27.0-31.0); MEAN CORPUSCULAR HGB CONC 32.5 g/dL (32.0-36.0); MEAN CORPUSCULAR VOLUME 89.4 fL (81.0-99.0); MEAN PLATELET VOLUME 10.2 fL (7.9-10.8); MONOCYTES # (AUTO) 0.3 10^3/uL (0.0-1.0); MONOCYTES % (AUTO) 7.2 %; NEUTROPHILS # (AUTO) 2.5 10^3/uL (1.5-6.6); PLT - PLATELET COUNT 314 10^3/uL (130-450); RED BLOOD COUNT 4.61 10^6/uL (4.20-5.40); RED CELL DISTRIBUTION WIDTH 12.6 % (12.0-15.0); WHITE BLOOD COUNT 4.8 x10^3/uL (4.8-10.8)
[2022-10-04 15:09] LABS: ALBUMIN 3.9 g/dL (3.2-5.5); ALBUMIN/GLOBULIN RATIO 1.2 (1.0-2.2); BILIRUBIN,TOTAL 0.7 mg/dL (0.2-1.0); CALCIUM 9.2 mg/dL (8.5-10.3); CREATININE 0.6 mg/dL (0.4-1.0); POTASSIUM 3.8 mmol/L (3.5-5.0); TOTAL PROTEIN 7.2 g/dL (6.7-8.2)
[2022-10-04 15:23] LABS: THYROID STIMULATING HORMONE 1.33 uIU/mL (0.34-5.60)
[2022-10-04 20:48] LABS: ESTIMATED AVERAGE GLUCOSE 117 mg/dL (70-100); HEMOGLOBIN A1c% 5.7 % (4.27-6.07)
[2022-10-06 01:08] LABS: HCV AB Non Reactive (Non Reactive)
[2022-10-06 04:09] LABS: HIV SCREEN 4TH GENERATION Non Reactive (Non Reactive)
== END 2022-10-04 11:07 | disposition home or self-care (01) ==
LOC: LAB.S 11:06
PROVIDERS: ATTEND Registered Nurse
DX: Z00.00 Encounter for general adult medical examination without abnormal findings (principal); Z83.3 Family history of diabetes mellitus; Z13.29 Encounter for screening for other suspected endocrine disorder; Z79.899 Other long term (current) drug therapy
CPT/HCPCS: 36415; 80053; 83036; 84443; 85025; 86803; G0475; 87389

== ENCOUNTER 2023-03-12 08:00 | Outpatient (CLI) | payer MEDICARE, MEDICAID ==
[2023-03-13 02:16] LABS: BACTERIAL VAGINOSIS DNA NEGATIVE (NEGATIVE); CANDIDA GLABRATA DNA NEGATIVE (NEGATIVE); CANDIDA GROUP DNA NEGATIVE (NEGATIVE); CANDIDA KRUSEI DNA NEGATIVE (NEGATIVE); TRICHOMONAS VAGINALIS DNA NEGATIVE (NEGATIVE)
== END 2023-03-12 23:59 | disposition home or self-care (01) ==
LOC: LAB 08:00
PROVIDERS: ATTEND Emergency Medicine
DX: N89.8 Other specified noninflammatory disorders of vagina (principal)
CPT/HCPCS: 81514

== ENCOUNTER 2023-03-13 12:36 | Outpatient (CLI) | payer MEDICARE, MEDICAID ==
[2023-03-14 06:10] LABS: HEPATITIS B SURFACE AB QUANT <3.1 mIU/mL (Immunity>9.9)
[2023-03-14 08:11] LABS: RPR Non Reactive (Non Reactive)
[2023-03-14 09:09] LABS: HCV AB Non Reactive (Non Reactive); HSV 1 IGG TYPE SPEC <0.91 index (0.00-0.90); HSV 2 IGG TYPE SPEC <0.91 index (0.00-0.90)
== END 2023-03-13 12:37 | disposition home or self-care (01) ==
LOC: LAB.S 12:36
PROVIDERS: ATTEND Emergency Medicine
DX: N89.8 Other specified noninflammatory disorders of vagina (principal); R30.0 Dysuria
CPT/HCPCS: 36415; 81001; 86317; 86592; 86695; 86696; 86803; 87086; 87389; 87491; 87591; 87661

== ENCOUNTER 2023-05-14 11:34 | Outpatient (CLI) | payer MEDICARE, MEDICAID ==
[2023-05-14 14:54] LABS: BASOPHILS % (AUTO) 0.5 %; EOSINOPHILS # (AUTO) 0.1 10^3/uL (0.0-0.7); EOSINOPHILS % (AUTO) 1.2 %; HCT - HEMATOCRIT 43.5 % (37.0-47.0); LYMPHOCYTES # (AUTO) 1.7 10^3/uL (1.5-3.5); LYMPHOCYTES % (AUTO) 20.9 %; MEAN CORPUSCULAR HEMOGLOBIN 28.8 pg (27.0-31.0); MEAN CORPUSCULAR HGB CONC 32.2 g/dL (32.0-36.0); MEAN CORPUSCULAR VOLUME 89.5 fL (81.0-99.0); MEAN PLATELET VOLUME 9.8 fL (7.9-10.8); MONOCYTES # (AUTO) 0.6 10^3/uL (0.0-1.0); MONOCYTES % (AUTO) 7.7 %; NEUTROPHILS # (AUTO) 5.6 10^3/uL (1.5-6.6); NEUTROPHILS % (AUTO) 69.3 %; PLT - PLATELET COUNT 340 10^3/uL (130-450); RED BLOOD COUNT 4.86 10^6/uL (4.20-5.40); RED CELL DISTRIBUTION WIDTH 13.2 % (12.0-15.0); WHITE BLOOD COUNT 8.1 x10^3/uL (4.8-10.8)
[2023-05-14 15:08] LABS: ALBUMIN 4.3 g/dL (3.2-5.5); ALBUMIN/GLOBULIN RATIO 1.5 (1.0-2.2); BILIRUBIN,TOTAL 0.4 mg/dL (0.2-1.0); CALCIUM 9.9 mg/dL (8.5-10.3); CREATININE 0.7 mg/dL (0.6-1.3); TOTAL PROTEIN 7.1 g/dL (6.4-8.9)
== END 2023-05-14 11:35 | disposition home or self-care (01) ==
LOC: LAB.S 11:34
PROVIDERS: ATTEND Emergency Medicine
DX: R10.11 Right upper quadrant pain (principal); R35.0 Frequency of micturition
CPT/HCPCS: 36415; 80053; 83690; 85025

== ENCOUNTER 2023-05-17 22:33 | Outpatient (CLI) | payer MEDICARE, MEDICAID ==
--- NOTE | 2023-05-18 10:55 | Ultrasound Report ---
PROCEDURE: Abdomen Limited INDICATIONS: RUQ ABD PAIN TECHNIQUE: Real-time focused scanning was performed of the abdomen, with image documentation. Limited exam due t o bowel gas. COMPARISONS: None. FINDINGS: Liver: Liver is normal in size. Parenchyma is coarse in echotexture and diffusely echogenic. Hyperec hoic, lobulated mass in the left hepatic lobe measuring 3.3 x 2.8 x 2.4 cm with no significant news internship al vascularity. Main portal vein is patent with hepatopedal flow. Gallbladder: Single stone at the neck measuring 1.2 cm. No sludge. Normal wall thickness of 2 mm. No pericholecystic fluid. Biliary ducts: Intrahepatic bile ducts are non-dilated. Extrahepatic bile duct caliber measures 4 m m. Normal is 6-7 mm or less in diameter, or 10 mm or less post-cholecystectomy. Pancreas: Visualized portions of the pancreas are sonographically normal. Right kidney: Normal in size and echotexture. Right kidney measures 10.6 cm long. No hydronephrosis or nephrolithiasis. No solid masses. No complex renal cystic lesions which require follow-up. Miscellaneous: No perihepatic fluid. IMPRESSION: 1. Liver is coarse in echotexture and diffusely echogenic suggestive of parenchymal disease such as s teatosis. Correlate with LFTs. 2. Hyperechoic mass in the left hepatic lobe measuring 3.3 x 2.8 x 2.4 cm which is indeterminate. Rec ommend MRI (liver mass protocol) for further evaluation. 3. Cholelithiasis without acute cholecystitis. Reviewed by: Vicki Norton MD on 05/18/2023 10:54 AM PDT Approved by: Vicki Norton MD on 05/18/2023 10:54 AM PDT Station ID: [id number]
== END 2023-05-17 22:34 | disposition home or self-care (01) ==
LOC: DI 22:33
PROVIDERS: ATTEND Emergency Medicine
DX: R16.0 Hepatomegaly, not elsewhere classified (principal); K80.20 Calculus of gallbladder without cholecystitis without obstruction

== ENCOUNTER 2023-05-20 16:51 | Emergency (ER) | payer MEDICARE, MEDICAID ==
[2023-05-20 17:24] LABS: BASOPHILS % (AUTO) 0.7 %; EOSINOPHILS # (AUTO) 0.1 10^3/uL (0.0-0.7); EOSINOPHILS % (AUTO) 2.3 %; HCT - HEMATOCRIT 40.2 % (37.0-47.0); HGB - HEMOGLOBIN 13.4 g/dL (12.0-16.0); LYMPHOCYTES # (AUTO) 2.1 10^3/uL (1.5-3.5); LYMPHOCYTES % (AUTO) 35.5 %; MEAN CORPUSCULAR HEMOGLOBIN 29.6 pg (27.0-31.0); MEAN CORPUSCULAR HGB CONC 33.3 g/dL (32.0-36.0); MEAN CORPUSCULAR VOLUME 88.7 fL (81.0-99.0); MEAN PLATELET VOLUME 9.6 fL (7.9-10.8); MONOCYTES # (AUTO) 0.5 10^3/uL (0.0-1.0); MONOCYTES % (AUTO) 8.5 %; NEUTROPHILS # (AUTO) 3.2 10^3/uL (1.5-6.6); NEUTROPHILS % (AUTO) 52.8 %; PLT - PLATELET COUNT 307 10^3/uL (130-450); RED BLOOD COUNT 4.53 10^6/uL (4.20-5.40); RED CELL DISTRIBUTION WIDTH 12.9 % (12.0-15.0)
[2023-05-20 17:38] LABS: ALBUMIN 4.4 g/dL (3.2-5.5); ALBUMIN/GLOBULIN RATIO 1.7 (1.0-2.2); BILIRUBIN,TOTAL 0.3 mg/dL (0.2-1.0); CALCIUM 9.5 mg/dL (8.5-10.3); CREATININE 0.8 mg/dL (0.6-1.3); POTASSIUM 3.3 mmol/L (3.5-4.5)
[2023-05-20] MEDS ORDERED: LOPERAMIDE 2 MG CAPSULE PO STA (19:02)
--- NOTE | 2023-05-20 19:02 | ED Physician Documentation ---
History of Present Illness - Stated complaint Stated Complaint: GI - Chief complaint Chief Complaint: Abd Pain - Additonal information Additional information: " 33-year-old female comes to the emergency department for concerns of bloody diarrhea for the last week as well as pain in her right upper quadrant. Was seen at a local walk-in clinic recently for upper abdominal pain. Had fairly unremarkable laboratory testing but subsequently had an ultrasound Of her abdomen which did show gallstones without evidence of cholecystitis. There was a hyperechoic mass within the left lobe of the liver which was indeterminate with recommendation made for an MRI. Patient states that she ate Cymro food last night and that increase the upper abdominal pain however she had no fevers nausea or vomiting. States that for the last week she has been having mostly yellow loose stools about 2 a day. This morning she had a more formed stool and was concerned it was bloody. 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 HEENT: None Psych: Depression, Anxiety Musculoskeletal: None Derm: None - Past Surgical History Past Surgical History: Yes Ortho: Other - Present Medications Home Medications: Ambulatory Orders Medication Instructions Recorded Confirmed No Known Home Medications 05/20/23 05/20/23 - Allergies Allergies/Adverse Reactions: Allergies Allergy/AdvReac Type Severity Reaction Status Date / Time amoxicillin Allergy Mild Rash Verified 01/22/21 22:09 sulfamethoxazole Allergy Mild Rash Verified 01/22/21 22:09 [From Bactrim] tramadol Allergy Mild Rash Verified 01/22/21 22:09 trimethoprim [From Bactrim] Allergy Mild Rash Verified 01/22/21 22:09 - Social History Does the pt smoke?: No Smoking Status: Never smoker Does the pt drink ETOH?: No Does the pt have substance abuse?: No - Immunizations Immunizations are current?: Yes - POLST Patient has POLST: No PD ED PE NORMAL - General General: Alert and oriented X 3, No acute distress. No: Well developed/nourished (obese) - HEENT HEENT: PERRL - Neck Neck: Supple, no meningeal sign - Cardiac Cardiac: RRR - Respiratory Respiratory: No respiratory distress, Clear bilaterally - Abdomen Abdomen: Normal bowel sounds, Soft, Non tender (Elicited no abdominal tenderness with percussion light or deep palpation.) Results - Vitals Vitals: Vital Signs - 24 hr 05/20/23 17:07 Temperature 36.4 C L Heart Rate 88 Respiratory 20 Rate Blood Pressure 129/78 O2 Saturation 98 Oxygen O2 Source Room air - Labs Labs: Laboratory Tests 05/20/23 05/20/23 17:20 17:20 WBC 6.0 RBC 4.53 Hgb 13.4 Hct 40.2 MCV 88.7 MCH 29.6 MCHC 33.3 RDW 12.9 Plt Count 307 MPV 9.6 Neut # (Auto) 3.2 Lymph # (Auto) 2.1 [place] # (Auto) 0.5 Eos # (Auto) 0.1 Baso # (Auto) 0.0 Absolute Nucleated RBC 0.00 Nucleated RBC % 0.0 Sodium 134 L Potassium 3.3 L Chloride 102 Carbon Dioxide 27 Anion Gap 5.0 L BUN 13 Creatinine 0.8 Estimated GFR (MDRD) 83 L Glucose 102 Calcium 9.5 Total Bilirubin 0.3 AST 15 ALT 19 Alkaline Phosphatase 44 Total Protein 7.0 Albumin 4.4 Globulin 2.6 Albumin/Globulin Ratio 1.7 Lipase 49 PD Medical Decision Making - ED course Complexity details: reviewed results, re-evaluated patient, d/w patient ED course: 33-year-old female presents emergency department for evaluation of upper abdominal pain that began last night after eating Cymro food. Recently diagnosed with gallstones. However the ultrasound showed no evidence of Peggy cystitis. She has not yet received a referral to surgery. However the ultrasound also showed a hypoechoic mass in the lobe of the liver that should be MRI. I am she reported bloody diarrhea for the last week though the picture she shows on the phone are in fact bright yellow with no evidence of melena or hematochezia. Today in the emergency department CBC and electrolytes were obtained which showed no acute worrisome abnormalities. Specifically no LFT abnormalities. Her abdominal exam was benign with no tenderness elicited. She is considered low risk for C. difficile. Patient was unable to provide a stool culture today in the ER. However I have lower suspicion for this given the lack of fevers obvious bloody output or leukocytosis. Patient was given a single dose of Imodium here in the emergency department. We discussed the usual emergent return precautions for concerns of biliary colic. She will follow closely with her PCP in order to get referral to surgery for follow-up of the gallstones. But she should also get an outpatient MRI of her liver to rule out a concerning mass. Departure - Departure Disposition: 01 Home, Self Care Clinical Impression: Biliary colic Diarrhea Qualifiers: Diarrhea type: unspecified type Qualified Code(s): R19.7 - Diarrhea, unspecified Condition: Stable Instructions: ED Diarrhea Viral, ED Gallstone W Biliary Colic Comments: Sveta you have had some watery stools for the last week. The pictures that you show on the phone do not indicate blood. We are giving you a single dose of Imodium today in the emergency department which should help with the diarrhea. I recommend that you eat a cup of Romansh yogurt over the next several days. This will also help reintroduce healthy bacteria to your intestines and reduce the diarrhea. You did have an ultrasound completed earlier this week which showed a gallstone in your gallbladder. You ate Cymro food last night and had increased abdominal pain. This is called biliary colic. However there is no indication based on your labs or exam today that you need to go to surgery. Your primary care doctor does need to make a referral for you to surgery for further evaluation. The ultrasound completed this week also had a concern for a possible lesion on your liver. It was not well characterized but they are making the recommendation to have an outpatient MRI of the liver for further evaluation. Please contact Tonya Adamson this week to arrange follow-up. Return to the ER for fevers, uncontrolled vomiting suddenly severe or different abdominal pain or if you find the diarrhea fails to resolve with the treatment rendered today.
[2023-05-20 19:50] VITALS: BP 124/85; O2SAT 99
== END 2023-05-20 19:48 | disposition home or self-care (01) ==
LOC: ED 16:51
DX: K80.50 Calculus of bile duct without cholangitis or cholecystitis without obstruction (principal)
CPT/HCPCS: 36415; 80053; 83690; 85025; 99283; A9270

== ENCOUNTER 2023-06-16 11:18 | Outpatient (CLI) | payer MEDICARE, MEDICAID ==
--- NOTE | 2023-06-17 00:05 | Ultrasound Report ---
PROCEDURE: Abdomen Complete INDICATIONS: CYST TECHNIQUE: Real-time scanning was performed of the abdominal and retroperitoneal organs, with image documentatio n. COMPARISON: Prior ultrasound, 05/17/2023 Correlation is made with lumbar MRI, 05/25/2023. FINDINGS: Liver: The liver demonstrates mildly enlarged size. The liver demonstrates mildly increased echogeni city, which limits ultrasound sensitivity for detection of masses. Within the left lobe of the liver, there is an echogenic focus seen that measures 2.7 x 3.6 x 2.2 cm. No abnormal vascularity can be se en. The main portal vein demonstrates normal size and hepatopedal flow. Gallbladder: Within the gallbladder, there is a 1.8 cm hyperechoic shadowing gallstone. The gallblad thanh wall does not appear thickened. There is no specific pericholecystic fluid. The sonographic Dmitriy y's sign is negative. Biliary ducts: Intrahepatic bile ducts are non-dilated. Extrahepatic bile duct caliber measures 2 m m. Normal is 6-7 mm or less in diameter, or 10 mm or less post-cholecystectomy. Pancreas: Visualized portions of the pancreas are sonographically normal. Spleen: Spleen is normal in size and homogeneous in echotexture. Kidneys: Kidneys are normal in size and echotexture. Right kidney measures 11.2 cm long; left kidne y measures 10.4 cm long. No hydronephrosis. No solid masses. No complex renal cystic lesions which require follow-up. Echogenic foci can be seen within the right kidney. There is a 5 mm echogenic focu s seen at the midportion of the left kidney. Aorta: Visualized aorta is normal in caliber at less than 3 cm. Iliacs: Not seen, obscured by body habitus. IVC: Intrahepatic inferior vena cava is patent. Miscellaneous: No free abdominal fluid. At the area of pain within the left midabdomen, normal-appearing bowel can be seen. IMPRESSION: A liver hemangioma is again seen. Mildly enlarged, mildly fatty liver. A layering gallstones seen, without additional sonographic signs of cholecystitis. No biliary dilatat ion. 5 mm left-sided kidney stone. Additional potential right-sided kidney stones are seen, although diffe rential diagnosis includes artifact. Normal-appearing bowel can be seen at the site of pain within the left mid abdomen. Reviewed by: Дмитрий Valente MD on 06/16/2023 11:04 PM [place] Approved by: Дмитрий Valente MD on 06/16/2023 11:04 PM [facility] Station ID: [id number]
== END 2023-06-16 11:19 | disposition home or self-care (01) ==
LOC: DI 11:18
PROVIDERS: ATTEND Internal Medicine
DX: D18.03 Hemangioma of intra-abdominal structures (principal); K76.0 Fatty (change of) liver, not elsewhere classified; K80.20 Calculus of gallbladder without cholecystitis without obstruction; N20.0 Calculus of kidney

== ENCOUNTER 2023-07-05 07:00 | Outpatient (CLI) | payer MEDICARE, MEDICAID | END 2023-07-05 23:59 | disposition home or self-care (01) | LOC: LAB.S 07:00 | PROVIDERS: ATTEND Emergency Medicine | DX: J02.9 Acute pharyngitis, unspecified (principal) | CPT/HCPCS: 87070 ==

== ENCOUNTER 2023-08-09 11:28 | Outpatient (CLI) | payer MEDICARE, MEDICAID ==
[2023-08-09 14:42] LABS: BASOPHILS % (AUTO) 0.7 %; EOSINOPHILS # (AUTO) 0.3 10^3/uL (0.0-0.7); EOSINOPHILS % (AUTO) 4.8 %; HGB - HEMOGLOBIN 13.1 g/dL (12.0-16.0); LYMPHOCYTES # (AUTO) 1.9 10^3/uL (1.5-3.5); LYMPHOCYTES % (AUTO) 31.1 %; MEAN CORPUSCULAR HEMOGLOBIN 28.7 pg (27.0-31.0); MEAN CORPUSCULAR VOLUME 89.9 fL (81.0-99.0); MONOCYTES # (AUTO) 0.5 10^3/uL (0.0-1.0); MONOCYTES % (AUTO) 7.7 %; NEUTROPHILS # (AUTO) 3.3 10^3/uL (1.5-6.6); NEUTROPHILS % (AUTO) 55.4 %; PLT - PLATELET COUNT 283 10^3/uL (130-450); RED BLOOD COUNT 4.56 10^6/uL (4.20-5.40); RED CELL DISTRIBUTION WIDTH 13.2 % (12.0-15.0)
[2023-08-09 16:04] LABS: ALBUMIN/GLOBULIN RATIO 1.5 (1.0-2.2); BILIRUBIN,TOTAL 0.3 mg/dL (0.2-1.0); CALCIUM 9.3 mg/dL (8.5-10.3); CREATININE 0.7 mg/dL (0.6-1.3); POTASSIUM 3.5 mmol/L (3.5-4.5); TOTAL PROTEIN 6.6 g/dL (6.4-8.9)
[2023-08-09 19:35] LABS: THYROID STIMULATING HORMONE 1.27 uIU/mL (0.34-5.60)
[2023-08-09 20:13] LABS: ESTIMATED AVERAGE GLUCOSE 111 mg/dL (70-100); HEMOGLOBIN A1c% 5.5 % (4.27-6.07)
== END 2023-08-09 11:29 | disposition home or self-care (01) ==
LOC: LAB.S 11:28
PROVIDERS: ATTEND Physician Assistant Medical
DX: K76.0 Fatty (change of) liver, not elsewhere classified (principal); Z13.9 Encounter for screening, unspecified
CPT/HCPCS: 36415; 80053; 83036; 84443; 85025

== ENCOUNTER 2023-08-14 17:09 | Outpatient (CLI) | payer MEDICARE, MEDICAID ==
[2023-08-14 17:19] LABS: BILIRUBIN,URINE NEGATIVE (NEGATIVE); GLUCOSE, URINE (UA) NEGATIVE (NEGATIVE); KETONES,URINE (UA) NEGATIVE (NEGATIVE); LEUKOCYTE ESTERASE, URINE NEGATIVE (NEGATIVE); NITRITE,URINE NEGATIVE (NEGATIVE); OCCULT BLOOD,URINE NEGATIVE (NEGATIVE); PROTEIN,URINE NEGATIVE (NEGATIVE); UROBILINOGEN,URINE 0.2 (NORMAL) E.U./dL (NORMAL)
[2023-08-14 17:25] LABS: BACTERIA,URINE None Seen /HPF (None Seen); CLARITY,URINE CLEAR (CLEAR); RBC,URINE 0-5 /HPF (0-5); SQUAMOUS EPITHELIAL CELL,UR RARE Squamous (<= Few); WBC,URINE 0-3 /HPF (0-5)
== END 2023-08-14 17:10 | disposition home or self-care (01) ==
LOC: LAB 17:09
PROVIDERS: ATTEND Emergency Medicine
DX: R30.0 Dysuria (principal)
CPT/HCPCS: 81001; 87086

== ENCOUNTER 2023-10-24 08:00 | Outpatient (CLI) | payer MEDICARE, MEDICAID | END 2023-10-24 23:59 | disposition home or self-care (01) | LOC: LAB.N 08:00 | PROVIDERS: ATTEND Physician Assistant Medical | DX: R10.30 Lower abdominal pain, unspecified (principal) | CPT/HCPCS: 87086 ==

== ENCOUNTER 2023-10-24 16:28 | Emergency (ER) | payer MEDICARE, MEDICAID ==
[2023-10-24] MEDS ORDERED: iohexoL-300 100 ML VIAL ONE ×2 (17:02→17:34)
--- NOTE | 2023-10-24 17:02 | ED Physician Documentation ---
PD HPI ABD PAIN - Stated complaint Stated Complaint: ABD PX - Chief complaint Chief Complaint: Abd Pain - History obtained from History obtained from: Patient - Additional information Additional information: 33-year-old woman with history of right ovarian cysts, ANDRADE, she is on control. She is a longstanding umbilical hernia and presents for the evaluation of pelvic pain starting yesterday. It is associated with nausea but she says she is always nauseous so that is not particularly new for her. She doubts any possibility of . Last menses was late in September, not positive of the date but says she is not late. No problems with bowel movements. Sent from urgent care where reportedly a urine was done and negative. Not clear if tetanus was done. 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 : None HEENT: None Psych: Depression, Anxiety Musculoskeletal: None Derm: None - Past Surgical History Past Surgical History: Yes Ortho: Other - Present Medications Home Medications: Ambulatory Orders Medication Instructions Recorded Confirmed No Known Home Medications 05/20/23 10/24/23 - Allergies Allergies/Adverse Reactions: Allergies Allergy/AdvReac Type Severity Reaction Status Date / Time amoxicillin Allergy Mild Rash Verified 10/24/23 16:42 sulfamethoxazole Allergy Mild Rash Verified 10/24/23 16:42 [From Bactrim] tramadol Allergy Mild Rash Verified 10/24/23 16:42 trimethoprim [From Bactrim] Allergy Mild Rash Verified 10/24/23 16:42 - Social History Does the pt smoke?: No Smoking Status: Never smoker Does the pt drink ETOH?: No Does the pt have substance abuse?: No - Immunizations Immunizations are current?: Yes - POLST Patient has POLST: No PD ED PE NORMAL - Vitals Vital signs reviewed: Yes - General General: Alert and oriented X 3, No acute distress - Abdomen Abdomen: Normal bowel sounds, Other (Minimal pelvic tenderness, no surgical signs, large reducible umbilical hernia) - Back Back: No CVA TTP - Neuro Neuro: Alert and oriented X 3 Results - Vitals Vitals: Vital Signs - 24 hr 10/24/23 10/24/23 10/24/23 16:38 16:42 16:58 Temperature 36.4 C L Heart Rate 77 78 Respiratory 16 17 17 Rate Blood Pressure 159/72 H 134/80 H O2 Saturation 100 99 03/20/24 17:32 Temperature Heart Rate 71 Respiratory 17 Rate Blood Pressure 140/84 H O2 Saturation 100 Oxygen O2 Source Room air - Labs Labs: Laboratory Tests 10/24/23 10/24/23 10/24/23 17:00 17:00 17:03 WBC 7.8 RBC 4.37 Hgb 12.7 Hct 39.4 MCV 90.2 MCH 29.1 MCHC 32.2 RDW 12.8 Plt Count 298 MPV 9.5 Neut # (Auto) 5.5 Lymph # (Auto) 1.7 [place] # (Auto) 0.4 Eos # (Auto) 0.1 Baso # (Auto) 0.1 Absolute Nucleated RBC 0.00 Nucleated RBC % 0.0 Sodium 136 Potassium 3.4 L Chloride 103 Carbon Dioxide 26 Anion Gap 7.0 BUN 9 Creatinine 0.7 Estimated GFR (MDRD) 96 Glucose 97 Calcium 9.4 Total Bilirubin 0.3 AST 12 ALT 14 Alkaline Phosphatase 43 Total Protein 7.0 Albumin 4.3 Globulin 2.7 Albumin/Globulin Ratio 1.6 Lipase 25 Urine Color LIGHT YELLOW Urine Clarity CLEAR Urine pH 6.0 Ur Specific [place] 1.010 Urine Protein NEGATIVE Urine Glucose (UA) NEGATIVE Urine Ketones NEGATIVE Urine Occult Blood NEGATIVE Urine Nitrite NEGATIVE Urine Bilirubin NEGATIVE Urine Urobilinogen 0.2 (NORMAL) Ur Leukocyte Esterase NEGATIVE Ur Microscopic Review NOT INDICATED Urine Culture Comments NOT INDICATED Urine HCG, Qual NEGATIVE - Rads (name of study) CT a/p Relevant Findings:: Final report received, EMP independent interpretation of test PD Medical Decision Making - ED course ED course: She presents with pelvic pain, benign exam. Workup in the emergency department demonstrates normal CBC with white count of 7, unremarkable CMP, normal urinalysis and negative test. CT imaging demonstrating a known umbilical hernia which is reducible on exam and just containing fat but is quite large. Patient eager for discharge. No evidence of emergency medical condition. Departure - Departure Disposition: 01 Home, Self Care Clinical Impression: Pelvic pain in female Umbilical hernia Qualifiers: Obstruction and gangrene presence: without obstruction or gangrene Qualified Code(s): K42.9 - Umbilical hernia without obstruction or gangrene Condition: Good Record reviewed to determine appropriate education?: Yes Instructions: ED Pelvic Pain [facility] Follow-Up: Surgical Care [Provider Group] Comments: No serious findings on your CAT scan or labs tonight. It would be reasonable for you to see a surgeon about your fairly large umbilical hernia though. As advised, ideally weight loss would be in order to make the surgery go smoother. Return for new or worsening symptoms. Call the surgeons office for follow-up. Tylenol as needed for pain. Forms: PCP List
[2023-10-24 17:12] LABS: BILIRUBIN,URINE NEGATIVE (NEGATIVE); GLUCOSE, URINE (UA) NEGATIVE (NEGATIVE); KETONES,URINE (UA) NEGATIVE (NEGATIVE); LEUKOCYTE ESTERASE, URINE NEGATIVE (NEGATIVE); NITRITE,URINE NEGATIVE (NEGATIVE); OCCULT BLOOD,URINE NEGATIVE (NEGATIVE); PROTEIN,URINE NEGATIVE (NEGATIVE); UROBILINOGEN,URINE 0.2 (NORMAL) E.U./dL (NORMAL)
[2023-10-24 17:14] LABS: CLARITY,URINE CLEAR (CLEAR); HCG UR QUAL NEGATIVE
[2023-10-24 17:20] LABS: BASOPHILS # (AUTO) 0.1 10^3/uL (0.0-0.1); BASOPHILS % (AUTO) 0.6 %; EOSINOPHILS # (AUTO) 0.1 10^3/uL (0.0-0.7); EOSINOPHILS % (AUTO) 1.4 %; HCT - HEMATOCRIT 39.4 % (37.0-47.0); HGB - HEMOGLOBIN 12.7 g/dL (12.0-16.0); LYMPHOCYTES # (AUTO) 1.7 10^3/uL (1.5-3.5); LYMPHOCYTES % (AUTO) 21.4 %; MEAN CORPUSCULAR HEMOGLOBIN 29.1 pg (27.0-31.0); MEAN CORPUSCULAR HGB CONC 32.2 g/dL (32.0-36.0); MEAN CORPUSCULAR VOLUME 90.2 fL (81.0-99.0); MEAN PLATELET VOLUME 9.5 fL (7.9-10.8); MONOCYTES # (AUTO) 0.4 10^3/uL (0.0-1.0); MONOCYTES % (AUTO) 5.6 %; NEUTROPHILS # (AUTO) 5.5 10^3/uL (1.5-6.6); NEUTROPHILS % (AUTO) 70.7 %; PLT - PLATELET COUNT 298 10^3/uL (130-450); RED BLOOD COUNT 4.37 10^6/uL (4.20-5.40); RED CELL DISTRIBUTION WIDTH 12.8 % (12.0-15.0); WHITE BLOOD COUNT 7.8 x10^3/uL (4.8-10.8)
[2023-10-24] MEDS: ACETAMINOPHEN 500 MG TABLET PO STA (17:26)
[2023-10-24 17:32] LABS: ALBUMIN 4.3 g/dL (3.2-5.5); ALBUMIN/GLOBULIN RATIO 1.6 (1.0-2.2); BILIRUBIN,TOTAL 0.3 mg/dL (0.2-1.0); CALCIUM 9.4 mg/dL (8.5-10.3); CREATININE 0.7 mg/dL (0.6-1.3); POTASSIUM 3.4 mmol/L (3.5-4.5)
[2023-10-24] MEDS: ONDANSETRON 4 MG/2 ML VIAL IVP STA (17:38)
--- NOTE | 2023-10-24 19:19 | CT Report ---
PROCEDURE: Abdomen/Pelvis W INDICATIONS: IV only, low abd pain CONTRAST: Omni 300 100ml TECHNIQUE: After the administration of intravenous contrast, a CT scan of the abdomen and pelvis was performed. Images were recorded and evaluated at appropriate window settings. Reformats: coronal and sagittal. F or radiation dose reduction, the following was used: automated exposure control, adjustment of mA and /or kV according to patient size. COMPARISON: Abdominal ultrasound 06/16/2023. Liver MRI 06/02/2023. FINDINGS: Image quality: Diagnostic. Lower chest: Unremarkable. Liver: Lesion in the right lobe of liver measuring 2.4 cm. Lesion in the left lobe of liver measuring 1.8 cm. Previously characterized as hemangiomas. Gallbladder and biliary tree: No radiopaque stones or wall thickening. No biliary dilation. Spleen: No splenomegaly. Pancreas: No pancreatic ductal dilation. Adrenals: No adrenal nodule. Kidneys and ureters: No hydronephrosis. No renal cystic lesion which requires follow up. A few small cysts. No solid mass. Stomach, bowel and peritoneum: No bowel distension. No pathologic free fluid. Normal appendix. Lymph nodes: No central or retroperitoneal adenopathy. Vessels: No infrarenal aortic aneurysm. Circumaortic left renal vein. PELVIS Reproductive organs: Anteverted uterus. Bladder: No stone. Pelvic lymph nodes: No pelvic adenopathy by size criteria. Bones: No aggressive osseous abnormality. Bilateral L5 pars defect. Other: Large fat-containing periumbilical hernia. The hernia neck measures 3.6 cm. Partially visualiz ed on prior MRI and appears similar. IMPRESSION: No acute abnormality identified. No free fluid. Normal appendix. Fat-containing umbilical hernia is grossly similar. Reviewed by: Donaldo Freeman MD on 10/24/2023 7:18 PM PDT Approved by: Donaldo Freeman MD on 10/24/2023 7:18 PM PDT Station ID: [id number]
[2023-10-24 19:49] VITALS: BP 145/83; O2SAT 98
[2023-10-24] MEDS: iohexoL-300 100 ML VIAL IVP ONE (21:02)
== END 2023-10-24 19:42 | disposition home or self-care (01) ==
LOC: ED 16:28
DX: K42.9 Umbilical hernia without obstruction or gangrene (principal)
CPT/HCPCS: 36415; 74177; 80053; 81003; 81025; 83690; 84703; 85025; 87086; 99284; A9270; Q9967; 81001

== ENCOUNTER 2024-01-24 17:29 | Emergency (ER) | payer MEDICARE, MEDICAID ==
[2024-01-24] MEDS: IPRATROPIUM/ALBUTEROL 3 ML NEB INH STA (18:34)
[2024-01-24 18:47] LABS: CORONAVIRUS 229E-RESP PCR NOT DETECTED; CORONAVIRUS HKU1-RESP PCR NOT DETECTED; CORONAVIRUS NL63-RESP PCR NOT DETECTED; CORONAVIRUS OC43-RESP PCR NOT DETECTED; RHINOVIRUS/ENTEROVIRUS NOT DETECTED; SARS-CoV-2 -RESP PCR PANEL NOT DETECTED
[2024-01-24 18:48] LABS: B. PARAPERTUSSIS- RESP PCR PAN NOT DETECTED; B. PERTUSSIS- RESP PCR PANEL NOT DETECTED; C. PNEUMONIAE- RESP PCR PANEL NOT DETECTED; HUMAN METAPNEUMOVIRUS DETECTED; INFLUENZA A- RESP PCR PANEL NOT DETECTED; INFLUENZA B - RESP PCR PANEL NOT DETECTED; M. PNEUMONIAE- RESP PCR PANEL NOT DETECTED; PARAINFLUENZA VIRUS 1 NOT DETECTED; PARAINFLUENZA VIRUS 2 NOT DETECTED; PARAINFLUENZA VIRUS 3 NOT DETECTED; PARAINFLUENZA VIRUS 4 NOT DETECTED; RSV- RESP PCR PANEL NOT DETECTED
--- NOTE | 2024-01-24 19:04 | ED Physician Documentation ---
PD HPI URI - Stated complaint Stated Complaint: CHEST PX/COUGH - Chief complaint Chief Complaint: Resp - Additional information Additional information: 33-year-old female presents emergency department for cough. Patient says that this has been going on for about 5 to 6 days no known fevers or chills she says that she does have asthma and her main complaint is this persistent cough and she is unsure if she is contagious or not. 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 : Kidney stones HEENT: None Psych: Depression, Anxiety Musculoskeletal: None Derm: None - Past Surgical History Past Surgical History: Yes General: Other Ortho: Other HEENT: Myringotomy (tubes) - Present Medications Home Medications: Ambulatory Orders Medication Instructions Recorded Confirmed Control Pills 1 tab PO DAILY 12/20/23 12/20/23 Escitalopram [Lexapro] 1 tab PO DAILY 12/26/23 12/26/23 Albuterol Sulf [Ventolin Hfa 1 - 2 puffs INH Q4HR #1 ea 01/24/24 Inhaler] - Allergies Allergies/Adverse Reactions: Allergies Allergy/AdvReac Type Severity Reaction Status Date / Time amoxicillin Allergy Mild Rash Verified 01/24/24 17:36 sulfamethoxazole Allergy Mild Rash Verified 01/24/24 17:36 [From Bactrim] tramadol Allergy Mild Rash Verified 01/24/24 17:36 trimethoprim [From Bactrim] Allergy Mild Rash Verified 01/24/24 17:36 - Social History Does the pt smoke?: No Smoking Status: Never smoker Does the pt drink ETOH?: No Does the pt have substance abuse?: No - Immunizations Immunizations are current?: Yes - POLST Patient has POLST: No PD ED PE NORMAL - Vitals Vital signs reviewed: Yes - General General: Alert and oriented X 3, No acute distress, Other (Morbidly obese) - HEENT HEENT: Atraumatic, PERRL, Moist mucous membranes, Pharynx benign - Respiratory Respiratory: No respiratory distress, Clear bilaterally - Derm Derm: Normal color, Warm and dry, No rash - Extremities Extremities: No edema, No calf tenderness / cord Results - Vitals Vitals: Vital Signs - 24 hr 06/20/24 06/20/24 06/20/24 17:36 18:35 19:11 Temperature 36.7 C 36.6 C Heart Rate 94 78 72 Respiratory 16 20 18 Rate Blood Pressure 140/89 H 130/86 H O2 Saturation 95 98 Oxygen O2 Source Room air - Labs Labs: Laboratory Tests 01/24/24 17:43 Nasal Adenovirus (PCR) NOT DETECTED Nasal B. parapertussis DNA (PCR) NOT DETECTED Nasal Coronavir 229E PCR NOT DETECTED Nasal Coronavir HKU1 PCR NOT DETECTED Nasal Coronavir NL63 PCR NOT DETECTED Nasal Coronavir OC43 PCR NOT DETECTED Nasal Enterovir/Rhinovir PCR NOT DETECTED Nasal Influenza B PCR NOT DETECTED Nasal Influenza A PCR NOT DETECTED Nasal Parainfluen 1 PCR NOT DETECTED Nasal Parainfluen 2 PCR NOT DETECTED Nasal Parainfluen 3 PCR NOT DETECTED Nasal Parainfluen 4 PCR NOT DETECTED Nasal RSV (PCR) NOT DETECTED Nasal B.pertussis DNA PCR NOT DETECTED Nasal C.pneumoniae (PCR) NOT DETECTED Edwin Human Metapneumo PCR DETECTED A Nasal M.pneumoniae (PCR) NOT DETECTED Nasal SARS-CoV-2 (PCR) NOT DETECTED PD Medical Decision Making - ED course ED course: 33-year-old female presents emergency department for cough. Respiratory swab was complete patient tested positive for human metapneumovirus. She is given 1 DuoNeb treatment here in the emergency department with significant improvement of symptoms and albuterol inhaler was sent to her preferred pharmacy. I do not believe any further workup is indicated at this time. She has been afebrile she is not coughing up any pink-tinged bloody tinged sputum return precautions given patient told to follow-up with her primary care provider. Departure - Departure Disposition: 01 Home, Self Care Clinical Impression: Viral syndrome Instructions: ED Viral Syndrome Prescriptions: Albuterol Sulf [Ventolin Hfa Inhaler] 1 - 2 puffs INH Q4HR #1 ea Comments: Thank you for trusting us with your care. You have tested positive for human metapneumovirus and we have given you a albuterol inhaler here in the emergency department which seem to have significantly improved your symptoms. I have sent an albuterol inhaler prescription to your preferred pharmacy. Please follow-up with your primary care provider as needed come back in if he started to notice any worsening symptoms. Drink plenty of fluids eat a healthy well-balanced diet and get plenty of sleep to help your body recover. Forms: PCP List Discharge Date/Time: 01/24/24 19:11
[2024-01-24 19:20] VITALS: BP 130/86; O2SAT 98
== END 2024-01-24 19:11 | disposition home or self-care (01) ==
LOC: ED 17:29
DX: B34.9 Viral infection, unspecified (principal); B97.81 Human metapneumovirus as the cause of diseases classified elsewhere; J45.909 Unspecified asthma, uncomplicated; Z20.818 Contact with and (suspected) exposure to other bacterial communicable diseases; Z20.822 Contact with and (suspected) exposure to COVID-19; Z20.828 Contact with and (suspected) exposure to other viral communicable diseases
CPT/HCPCS: 87633; 94640; 94664; 99283

== ENCOUNTER 2024-04-09 15:00 | Outpatient (CLI) | payer MEDICARE, MEDICAID ==
[2024-04-09 21:02] LABS: HCG UR QUAL NEGATIVE
== END 2024-04-09 15:15 | disposition home or self-care (01) ==
LOC: LAB.N 15:00
PROVIDERS: ATTEND Nurse Practitioner
DX: Z32.00 Encounter for pregnancy test, result unknown (principal)
CPT/HCPCS: 81025